=== PATIENT | male | born 1985 | race American Indian/Alaskan Native ===

== ENCOUNTER 2017-02-11 17:52 | Emergency (ER) | payer OTHER ==
[~2017-02-11] VITALS: Ht 152.4 cm; Wt 81.7 kg
[~2017-02-11 17:52] MED LIST: AMITRIPTYLINE H10 MG PO; ANAPROX DS550 MG PO; BACTRIM DS TAB1 EACH PO; CYCLOBENZAPRINE10 MG PO; GABAPENTIN100 MG PO; HYDROXYZINE HCL25 MG PO; IBUPROFEN600 MG PO; KEFLEX500 MG PO; LITHIUM CARBON300 M1 PO; NAPROSYN500 MG PO; NORCO 5-325 TA1 EACH PO; POTASSIUM CHLO10 MEQ PO; PRILOSEC OTC20 MG PO; XANAX0.5 MG PO
[2017-02-11] MEDS ORDERED: TYLENOL325 MG PO (18:10)
== END 2017-02-11 19:20 | disposition home or self-care (01) ==
LOC: ED 17:52
DX: S93.504A Unspecified sprain of right lesser toe(s), initial encounter (principal); L72.9 Follicular cyst of the skin and subcutaneous tissue, unspecified; F31.9 Bipolar disorder, unspecified; F17.200 Nicotine dependence, unspecified, uncomplicated; Z90.49 Acquired absence of other specified parts of digestive tract; Z91.040 Latex allergy status; X58.XXXA Exposure to other specified factors, initial encounter
CPT/HCPCS: 99282

== ENCOUNTER 2018-04-16 19:15 | Emergency (ER) | payer OTHER ==
[~2018-04-16] VITALS: Ht 152.4 cm; Wt 81.7 kg
[~2018-04-16 19:15] MED LIST changes: +TYLENOL325 MG PO
[2018-04-16] MEDS ORDERED: CLONIDINE HCL0.1 MG PO (20:25)
[2018-04-16] MEDS ORDERED: ZOFRAN4 MG PO (21:28)
== END 2018-04-16 21:37 | disposition home or self-care (01) ==
LOC: ED 19:15
DX: J06.9 Acute upper respiratory infection, unspecified (principal); F31.9 Bipolar disorder, unspecified; F17.200 Nicotine dependence, unspecified, uncomplicated; Z91.040 Latex allergy status; Z79.899 Other long term (current) drug therapy
CPT/HCPCS: 71046; 87502; 99283-25

== ENCOUNTER 2018-07-19 21:52 | Emergency (ER) | payer OTHER ==
--- OUTSIDE RECORDS SUMMARY | ~2018-07-19 | XMS | Clinical Summary ---
Demographics + + + | Address | [address] | | | [place] [address] | + + + | Home Phone | | + + + | Preferred Language | Unknown | + + + | Marital Status | Single | + + + | Yarsani Affiliation | Unknown | + + + | Race | or | + + + | Ethnic Group | Not or | + + + Author + + + | Author | [facility] | + + + | Organization | [facility] | + + + | Address | Unknown | + + + | Phone | Unavailable | + + + Support + + +---------+ + | Name | Relationship | Address | Phone | + + +---------+ + | NONE,NONE | ECON | Unknown | Unavailable | + + +---------+ + Care Team Providers + +------+ + | Care Promotional Marketing Analyst Name | Role | Phone | + +------+ + | Jaren Doll | PP | | + +------+ + Source Comments OSMANI is fully live on both [facility] Ambulatory and [facility] InPatient.[facility] Allergies + + + + + + | Active Allergy | Reactions | Severity | Noted | Comments | | | | | Date | | + + + + + + | Latex | Rash | | 06/28/19 | | | | | | 08 | | + + + + + + Current Medications + + +-------+---------+------+------+-------+ | Prescription | Sig. | Disp. | Refills | Star | End | Statu | | | | | | t | Date | s | | | | | | Date | | | + + +-------+---------+------+------+-------+ | omeprazole 20 mg | 1-2 cap po qday | | | | | Activ | | Oral Capsule, | | | | | | e | | Delayed | | | | | | | | Release(E.C.) | | | | | | | + + +-------+---------+------+------+-------+ | fluoxetine 10 mg | 1-2 tab po qday | | | | | Activ | | Oral Tablet | | | | | | e | + + +-------+---------+------+------+-------+ | ibuprofen 200 mg | Take 200 mg by mouth | | | | | Activ | | oral tablet | every six hours as | | | | | e | | | needed. | | | | | | + + +-------+---------+------+------+-------+ | acetaminophen 500 | Take 1,000 mg by | | | | | Activ | | mg oral tablet | mouth every six | | | | | e | | | hours as needed. 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 | + + + Family History + + +------+ + | Medical History | Relation | Name | Comments | + + +------+ + | Hypertension | Mother | | | + + +------+ + + +------+--------+ + | Relation | Name | Status | Comments | + +------+--------+ + | Mother | | | | + +------+--------+ + Social History + +-------+ +--------+------+ | Tobacco Use | Types | Packs/Day | Years | Date | | | | | Used | | + +-------+ +--------+------+ | Never Smoker | | | | | + +-------+ +--------+------+ + + | Comments: Smoke off and on | + + + + +---------+ + | Alcohol Use | Drinks/We | oz/Week | Comments | | | ek | | | + + +---------+ + | Yes | | | occasionally | + + +---------+ + + + + | Sex Assigned at | Date Recorded | | | | + + + | Not on file | | + + + Last Filed Vital Signs + + + + | Vital Sign | Reading | Time Taken | + + + + | Blood Pressure | 150/97 | 11/12/2015 11:55 AM PDT | + + + + | Pulse | 119 | 11/12/2015 11:55 AM PDT | + + + + | Temperature | - | - | + + + + | Respiratory Rate | 18 | 11/12/2015 11:55 AM PDT | + + + + | Oxygen Saturation | - | - | + + + + | Inhaled Oxygen | - | - | | Concentration | | | + + + + | Weight | 79.7 kg (175 lb 9.6 | 11/12/2015 11:55 AM PDT | | | oz) | | + + + + | Height | 152.4 cm (5') | 11/12/2015 11:55 AM PDT | + + + + | Body Mass Index | 34.29 | 11/12/2015 11:55 AM PDT | + + + + Plan of Treatment + + + + + | Health Maintenance | Due Date | Last Done | Comments | + + + + + | Influenza (Flu) | | | | | vaccination (#1) | 8 | | | + + + + + Results Not on filefrom Last 3 Months Insurance + +--------+ +--------+ + + | Payer | Benefi | Subscriber | Type | Phone | Address | | | t Plan | ID | | | | | | / | | | | | | | Group | | | | | + +--------+ +--------+ + + | [place] | OHP | [phone] | Medica | [phone] [address] [phone] | | | PLUS | | id | [phone] | [place] [id number] | | | OPEN | | | | | | | CARD | | | | | + +--------+ +--------+ + + | FOR[facility]LY [facility] | | [phone] | Agency | | | | SERVICE | | | | | | | | HEALTH | | | | | | | | | | | | | | SERVIC | | | | | | | E | | | | | + +--------+ +--------+ + + + +--------+ +--------+ + + | Guarantor Name | Accoun | Relation to | Date | Phone | Billing Address | | | t Type | Patient | of | | | | | | | | | | + +--------+ +--------+ + + | SWEROSENDOT,AUGUST | Person | Self [birth year] | Home: | [address] | | | al/Fam | | 1984 | +- | [place], [place] | | | [place] | | | [phone] | [phone] | + +--------+ +--------+ + + | AUGUST DONOVAN | Agency | Self | [birth year] | Home: | [address] | | | | | 1984 | +- | [place], [place] | | | | | | [phone] | [phone] | + +--------+ +--------+ + +"
--- OUTSIDE RECORDS SUMMARY | ~2018-07-19 | XMS | Clinical Summary ---
Demographics + + + | Address | [address] | | | [place] [address] | + + + | Home Phone | | + + + | Preferred Language | Unknown | + + + | Marital Status | Unknown | + + + | Taoism Affiliation | Unknown | + + + | Race | Unknown | + + + | Ethnic Group | Unknown | + + + Author + + + | Author | [facility] | | | and [place] | + + + | Organization | [facility] | | | and [place] | + + + | Address | Unknown | + + + | Phone | Unavailable | + + + Care Team Providers + +------+ + | Care Protection Manager Name | Role | Phone | + +------+ + PP | Unavailable | + +------+ + Allergies Not on File Medications Not on file Active Problems Not on file Social History + +-------+ +--------+------+ | Tobacco [...] on file | | + + + + + + + | Job Start Date | Occupation | Industry | + + + + | Not on file | Not on file | Not on file | + + + + + + + + | Travel History | Travel Start | Travel End | + + + + + + | No recent travel history available. | + + Plan of Treatment + + + + + | Health Maintenance | Due Date | Last Done | Comments | + + + + + | Vaccine: | | | | | Dtap/Tdap/Td (1 - | 3 | | | | Tdap) | | | | + + + + + | Vaccine: Influenza | | | | | (Season Ended) | 9 | | | + + + + + Results Not on filefrom Last 3 Months"
--- OUTSIDE RECORDS SUMMARY | ~2018-07-19 | XMS | Clinical Summary ---
Demographics + + + | Address | [address] | | | [place] [address] | + + + | Home Phone | | + + + | Preferred Language | Unknown | + + + | Marital Status | Unknown | + + + | Episcopal Affiliation | Unknown | + + + | Race | Unknown | + + + | Ethnic Group | Unknown | + + + Author + + + | Author | [facility] | | | and [place] | + + + | Organization | [facility] | | | and [place] | + + + | Address | Unknown | + + + | Phone | Unavailable | + + + Care Team Providers + +------+ + | Care Product Engineer Name | Role | Phone | + [...]
--- OUTSIDE RECORDS SUMMARY | ~2018-07-19 | XMS | Clinical Summary ---
Demographics + + + | Address | [address] | | | [place] [address] | + + + | Home Phone | | + + + | Preferred Language | Unknown | + + + | Marital Status | Single | + + + | Sikhism Affiliation | Unknown | + + + [...] Team Providers + +------+ + | Care Health And Wellness Instructor Name | Role | Phone | + +------+ + | Jaren Doll | PP | | + +------+ + Source Comments OSMANI is fully live on both [facility] Ambulatory and [facility] InPatient.[facility] Allergies + + + + + [...] | Medica | [phone] | [address] [phone] | | | PLUS | | id | [phone] | [place] [address] | | | OPEN | | | | | | | CARD | | | | | + +--------+ +--------+ + + | [facility] | | [phone] | Agency | [...] | [place] | | | [phone] | [phone] | + +--------+ +--------+ + + | AUGUST DONOVAN | Agency | Self | [birth year] | Home: | [address] | | | | | 1984 | +- | [place], [place] | | | | | | [phone] | [phone] | + +--------+ +--------+ + +"
[~2018-07-19 21:52] MED LIST changes: +CLONIDINE HCL0.1 MG PO; +ZOFRAN4 MG PO
== END 2018-07-19 22:02 | disposition left against medical advice (07) ==
LOC: ED 21:52
DX: Z53.21 Procedure and treatment not carried out due to patient leaving prior to being seen by health care provider (principal)

== ENCOUNTER 2019-12-06 17:24 | Emergency (ER) | payer OTHER ==
[~2019-12-06] VITALS: Ht 154.9 cm; Wt 86.2 kg
--- OUTSIDE RECORDS SUMMARY | ~2019-12-06 | XMS | Encounter Summary ---
Demographics + + + | Address | [address] | | | [place] [address] | + + + | Home Phone | | + + + | Preferred Language | Unknown | + + + | Marital Status | Single | + + + | Catholic Affiliation | Unknown | + + + | Race | or | + + + | Ethnic Group | Not or | + + + Author + + + | Author | [facility] | + + + | Organization | [facility] | + + + | Address | Unknown | + + + | Phone | Unavailable | + + + Support + + +---------+ + | Name | Relationship | Address | Phone | + + +---------+ + | None None | ECON | Unknown | Unavailable | + + +---------+ + Care Team Providers + +------+ + | Care Knit Goods Cutter Hand Name | Role | Phone | + +------+ + | Jaren Doll | PCP | | + +------+ + Encounter Details +--------+ + + + + | Date | Type | Department | Care Team | Description | +--------+ + + + + | 09/20/ | Document-Sc | UNKNOWN DEPARTMENT | Unknown . | | | 2015 | anned | [address] | | | | | | [address] | | | | | | [place] | | | | | | [address] | | | +--------+ + + + + Social History + +-------+ +--------+------+ | Tobacco Use | Types | Packs/Day | Years | Date | | | | | Used | | + +-------+ +--------+------+ | Never Smoker | | | | | + +-------+ +--------+------+ + + | Comments: Smoke off and on | + + + + +---------+ + | Alcohol Use | Drinks/Week | oz/Week | Comments | + + +---------+ + | Yes | | | occasionally | + + +---------+ + + + + | Sex Assigned at | Date Recorded | | | | + + + | Not on file | | + + + documented as of this encounter Plan of Treatment Not on filedocumented as of this encounter Visit Diagnoses Not on filedocumented in this encounter"
--- OUTSIDE RECORDS SUMMARY | ~2019-12-06 | XMS | Clinical Summary ---
Demographics + + + | Address | [address] | | | [place] [address] | + + + | Home Phone | | + + + | Preferred Language | Unknown | + + + | Marital Status | Single | + + + | Religion Affiliation | Unknown | + + + | Race | or | + + + | Ethnic Group | Not or | + + + Author + + + | Author | [facility] | | | and [place] | + + + | Organization | [facility] | | | and [place] | + + + | Address | Unknown | + + + | Phone | Unavailable | + + + Support + + +---------+ + | Name | Relationship | Address | Phone | + + +---------+ + | Tiffany Morales | ECON | Unknown | | + + +---------+ + Care Team Providers + +------+ + | Care Bioinformatics Team Member Name | Role | Phone | + +------+ + | Tiffany Zarco PA-C | PCP | | + +------+ + Allergies Not on File Medications Not on file Active Problems Not on file Encounters +--------+ + + + + | Date | Type | Specialty | Care Team | Description | +--------+ + + + + | 12/05/ | Telephone | Gastroenterology | SelenapualYenny celeste, | Other (proactive | | 2020 | | | MD | screening) | +--------+ + + + + | 11/15/ | Telephone | Gastroenterology | Saeed Addison | Referral | | 2019 | | | MD Jackeline | | +--------+ + + + + from Last 3 Months Social History + +-------+ +--------+------+ | Tobacco Use | Types | Packs/Day | Years | Date | | | | | Used | | + +-------+ +--------+------+ | Never Assessed | | | | | + +-------+ +--------+------+ + + + | Sex Assigned at | Date Recorded | | | | + + + | Not on file | | + + + Last Filed Vital Signs Not on file Plan of Treatment +--------+---------+ + + + | Date | Type | Specialty | Care Team | Description | +--------+---------+ + + + | 12/06/ | Office | Gastroenterology | Yenny Gu, | | | 2019 | Visit | | [address] | | | | | | [place] [address] | | | | | | [phone] | | | | | | | | +--------+---------+ + + + + + + + + | Health Maintenance | Due Date | Last | Comments | | | | Done | | + + + + + | Hepatitis C | | | | | Screening | 4 | | | + + + + + | Vaccine: Influenza | | 12/31/19 | | | (#1) | 0 | 19, | | | | | 01/20/20 | | | | | 18, | | | | | 01/24/20 | | | | | 17, | | | | | Addition | | | | | al | | | | | history | | | | | exists | | + + + + + | Vaccine: | | 04/30/19 | | | Dtap/Tdap/Td (4 - | 8 | 18, | | | Td) | | 03/22/20 | | | | | 07, | | | | | 03/19/19 | | | | | 99 | | + + + + + Results Not on filefrom Last 3 Months Insurance + +--------+ +--------+ +---------+--------+ | Payer | Benefi | Subscriber | Effect | Phone | Address | Type | | | t Plan | ID | janice | | | | | | / | | Dates | | | | | | Group | | | | | | + +--------+ +--------+ +---------+--------+ | [place]ID [place] | MEDICA | [id number] | | [phone] | | [place] | | | [place] | | 020-Pr | 2 | | id | | | PLUS | | esent | | | | + +--------+ +--------+ +---------+--------+ + +--------+ +--------+ + + | Guarantor Name | Accoun | Relation to | Date | Phone | Billing Address | | | t Type | Patient | of | | | | | | | | | | + +--------+ +--------+ + + | Nicole Mcnair | Person | Self [birth year] | [address] | | | al/Fam | | 1985 | [phone] | [place] | | | [place] | | | [address] (Home) | [phone] | + +--------+ +--------+ + + Advance Directives + + + + + | Type | Date Recorded | Patient | Explanation | | | | Commercial Finance Analyst | | + + + + + | Power of | | | | | Executive Administrative Asst | | | | + + + + + | Advance | | | | | Directive | | | | + + + + +"
--- OUTSIDE RECORDS SUMMARY | ~2019-12-06 | XMS | Encounter Summary ---
Demographics + + + | Address | [address] | | | [place] [address] | + + + | Home Phone | | + + + | Preferred Language | Unknown | + + + | Marital Status | Single | + + + | Confucianism Affiliation | Unknown | + + + | Race | or | + + + | Ethnic Group | Not or | + + + Author + + + | Author | [facility] | + + + | Organization | [facility] | + + + | Address | Unknown | + + + | Phone | Unavailable | + + + Support + + +---------+ + | Name | Relationship | Address | Phone | + + +---------+ + | None None | ECON | Unknown | Unavailable | + + +---------+ + Care Team Providers + +------+ + | Care Step Down Nurse Name | Role | Phone | + +------+ + | Daren Carter DO | PCP | | + +------+ + Reason for Visit + + + | Reason | Comments | + + + | Back pain | New patient consult, Spinal bifida | + + + Consultation (Routine) +--------+--------+ + + + + | Status | Reason | Specialty | Diagnoses / | Referred By | Referred To | | | | | Procedures | Contact | Contact | +--------+--------+ + + + + | Closed | | Orthopedics | Diagnoses | Walker, | Karen, | | | | | Congenital | Daren Taylor DO | Denis Alaniz, | | | | | absence of | [address] | [place] | | | | | vertebra | [address] | [facility] | | | | | Scoliosis | [place], | [address] | | | | | (and | [place] [address] | [address] | | | | | [address] | Phone: | [address] | | | | | is), | [phone] | [place], [place] | | | | | idiopathic | Fax: | [phone] Phone: | | | | | Procedures | [phone] | [phone] | | | | | CONSULT TO | | Fax: | | | | | SPINE ORTHO | | [phone] | +--------+--------+ + + + + Encounter Details +--------+---------+ + + + | Date | Type | Department | Care Team | Description | +--------+---------+ + + + | 06/27/ | Office | Orthopaedic Spine | Denis Jones | Sacral Agenesis | | 2007 | Visit | Center at [facility] [address] | MD [facility] [place] [facility] | (Primary Dx) | | | | [address] | Care | | | | | Mailcode: [facility] | [address] | | | | | [facility] | [place] [address] | | | | | and Healing, | [phone] | | | | | Building | | | | | | Floor [place], [place] | | | | | | [address] | | | | | | [phone] | | | +--------+---------+ + + + Social History + +-------+ [...] + + documented as of this encounter Last Filed Vital Signs + + + + + | Vital Sign | Reading | Time Taken | Comments | + + + + + | Blood Pressure | - | - | | + + + + + | Pulse | 54 | 06/28/2007 12:01 PM | | | | | PDT | | + + + + + | Temperature | - | - | | + + + + + | Respiratory Rate | - | - | | + + + + + | Oxygen Saturation | - | - | | + + + + + | Inhaled Oxygen | - | - | | | Concentration | | | | + + + + + | Weight | 63.5 kg (140 lb) | 06/28/2007 12:01 PM | | | | | PDT | | + + + + + | Height | 154.9 cm (5' 1") | 06/28/2007 12:01 PM | | | | | PDT | | + + + + + | Body Mass Index | 26.45 | 06/28/2007 12:01 PM | | | | | PDT | | + + + + + documented in this encounter Progress Notes Denis Jones - 06/28/2007 12:35 PM PDT cc: neck and upper back pain and LBP HPI: Nicole Mcnair is a 22 y.o. male who has a 4 year history of back pain. He describes t he symptoms as intermittent, daily, aching. These symptoms are located in the area of neck and upper back and low back, Right shoulder. They improve with inactivity. Lifting heavy o bjects, basketball makes them worse. There is occasional numbness/tingling in the right martinez d. Prior treatment has included PT many years ago. Prior spine surgery includes spina bifida surgery when he was a baby in [facility] . Nicole Sweowat is currently taking the following medications for his symptoms: hydrocodone not taking because fo nausea. He reports some fevers, chills. No loss of bowel or bladder control, but urgency. some balance problems (club foot), no new clumsiness or problems with manipulating fine objects. PMH: includes club foot, and spina bifida, some kind of GI problems of unclear etiology. P lease see the intake form which I have reviewed for full details. PSH: Please see the intake form which I have reviewed for full details. Medications: Current outpatient prescriptions : omeprazole 20 mg Oral Capsule, Delayed Rele ase(E.C.), 1-2 cap po qday, Disp: , Rfl: fluoxetine 10 mg Oral Tablet, 1-2 tab po qday, Disp: , Rfl: hydrocodone-acetaminophen 5-325 mg Oral Tablet, 1 tab po qday, Disp: , Rfl: Allergies: Allergies Allergen Reactions Latex Rash Social Hx: Works as a never. Currently disabled. Tobacco history is occasional, 1 gram marajuana per day. Alcohol history is occasional ( former alcoholic. ROS: Please see the intake form which I have reviewed for full details. Physical Exam: General: The patient is a well-formed, well nourished individual in no acute distress who appears of stated age. Affect and mood are normal. Patient is normocephalic. Peripheral p ulses are normal. Breathing is normal. Abdomen is soft, non-tender. Skin is normal color, temperature. No significant lymphedema. Station and gait are poor (see below) Vital Signs: As per intake form. Musculoskeletal: Examination of the cervical, thoracic and lumbar spine demonstrates no sk in changes or areas of induration. There is a hairy patch in the lumabr spine, as weel as a well healed midine scar. Flexibility is limited to flexion, extension, lateral bending, an d axial rotation of both the cervical and lumabr spines. 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 Spurlings and Lhermittes tests are negative. Crawford and Neer tests are ne gative for impingement. Hip and knee ROM are normal. HE has a stiff ankle on the right. Neurologic: Muscle strength is 5/5 in all motor groups of the upper extremities, the right ankle is nonmobile. The left foot has no dorsiflexion or EHL, but 4/5 gastroc. Deep tendon reflexes are 2 at the biceps, triceps and wrist extensors, as well as the knees, ankles are minimal. There is no Hoffmans sign. There is no clonus. Sensation is grossly intact to l ight touch throughout, except decreased over the feet (longstanding). Radiographs: X-Rays show defect about T11. 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 Impression: Nicole Mcnair is a 22 y.o. male with sacral agenesis, spina bifida, and neck an d back pain. Plan: I want to work up his neck. This would include x-rays and MRI of the cervical spine. I told him that I do not think I would be able to help with his low back, and I will defer further workup of this at this time. I will prescribe him with PT, but I don't know if his insurance will cover that. The other things is that based on his x-rays, I don't think he should be afraid to play noncontact sports (like shooting basketball) in terms of his back. Therefore I would recommend he get back into physical activity, like walking or shooting ba sketball. Sit-ups don't make sense for him given his sacral defects. I will see him back a fter the studies are done. documented in this enc ounter Plan of Treatment + +---------+--------+ + + | Name | Type | Priori | Associated Diagnoses | Order Schedule | | | | ty | | | + +---------+--------+ + + | MRI SPINE CERVICAL | Imaging | Routin | Sacral Agenesis | Ordered: 06/28/2007 | | WO CONTRAST | | e | | | + +---------+--------+ + + documented as of this encounter Procedures + +--------+ + + + | Procedure Name | Priori | Date/Time | Associated Diagnosis | Comments | | | ty | | | | + +--------+ + + + | X-RAY SPINE CERVICAL | Routin | 06/28/2007 | Sacral Agenesis | Results for this | | 3 VIEWS | e | 12:46 PM | | procedure are in the | | | | PDT | | results section. | + +--------+ + + + documented in this encounter Results X-RAY SPINE CERVICAL 3 VIEWS (06/28/2007 12:46 PM PDT) + + + + + + | Component | Value | Ref Range | Performed | Pathologist | | | | | At | Signature | + + + + + + | SPINE, | STUDY: SPINE CERVICAL 3 | | | | | CERVICAL, 3 | VIEWS 06/28/07 | | | | | VIEWS | 13:19:00COMPARISON: | | | | | | NONEDISCUSSION:There is | | | | | | relative flattening and | | | | | | widening of the C5 and | | | | | | C6 vertebralbodies, | | | | | | without evidence for | | | | | | compression fracture. | | | | | | Disc spaces | | | | | | aremaintained. | | | | | | Alignment is anatomic. | | | | | | The atlanto-odontoid | | | | | | intervaland | | | | | | craniocervical junction | | | | | | are normal. No | | | | | | pre-vertebral soft | | | | | | tissueswelling is | | | | | | present.There is no | | | | | | dynamic instability | | | | | | between flexion and | | | | | | extension.IMPRESSION:1. | | | | | | Relative flattening | | | | | | and widening of the C5 | | | | | | and C6 vertebralbodies | | | | | | appears chronic and | | | | | | unrelated to trauma. | | | | | | This is most | | | | | | likelydevelopmental.2. | | | | | | No malalignment or | | | | | | dynamic instability.I | | | | | | have personally viewed | | | | | | this procedure/exam and | | | | | | reviewed this | | | | | | report.STATUS FINAL / | | | | | | Dr. 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
--- OUTSIDE RECORDS SUMMARY | ~2019-12-06 | XMS | Encounter Summary ---
Demographics + + + | Address | [address] | | | [place] [address] | + + + | Home Phone | | + + + | Preferred Language | Unknown | + + + | Marital Status | Single | + + + | Sikh Affiliation | Unknown | + + + | Race | or | + + + | Ethnic Group | Not or | + + + Author + + + | Author | [facility] | | | and [place] | + + + | Organization | [facility] | | | and [place] | + + + | Address | Unknown | + + + | Phone | Unavailable | + + + Support + + +---------+ + | Name | Relationship | Address | Phone | + + +---------+ + Fito Morales | ECON | Unknown | | + + +---------+ + Care Team Providers + +------+ + | Care Concrete Gun Operator Name | Role | Phone | + +------+ + | Tiffany Zarco PA-C | PCP | | + +------+ + Reason for Visit + +--------+ + | Reason | Onset | Comments | | | Date | | + +--------+ + | Referral | 11/15/ | | | | 2020 | | + +--------+ + Encounter Details +--------+ + + + + | Date | Type | Department | Care Team | Description | +--------+ + + + + | 11/15/ | Telephone | [facility] | Saeed Addison | Referral | | 2020 | | GASTROENTEROLOGY | MD Jackeline [address] | | | | | [address] | [place] [address] | | | | | [place], [place] | [phone] | | | | | [address] | | | | | | [phone] | | | +--------+ + + + [...] + + documented as of this encounter Miscellaneous Notes Telephone Encounter - Cari Day - 11/24/2019 5:08 PM PDTReturned call, appt schedu led. elephone Encounter - Bethany Bennett - 11/22/2019 3:28 PM PDTLoren, is returning call for Referral and would like a call back. Additional Call Details: Returning call to schedule from new referral. Please call back at the home number. elephone Encounter - Sun Beard - 11/22/2019 11:32 AM PDTSee referral notes/communications 11/22/2019 Sun figueroa Antique Collector elephone Encounter - Alyson Miranda - 11/18/2019 1:57 PM PDTLoren, is returning call for Referral and would like a call back. Additional Call Details: Returning call, please call the home number listed elephone Encounte r Bethany Coker - 11/16/2019 4:31 PM PDTShdeborah[facility] and would like a call back. Additional Call Details: Caller states she will contact patient to schedule from referral, as he has not returned the referral coordinators call. If this is a symptom based call, was patient offered triage? Not Applicable If this is a symptom based call and you were unable to immediately transfer the call to a vandana garcia senior buyer planner was caller made aware that if at any time he feels it is an emergency they jass uld call 911 or go to the nearest emergency room? not applicable documented in this encounter Plan of Treatment +--------+---------+ + + + | Date | Type | Specialty | Care Team | Description | +--------+---------+ + + + | 12/06/ | Office | Gastroenterology | Yenny Gu, | | 2019 | Visit | | MD [address] | | | | | | [place] [address] | | | | | | [phone] | | | | | | | | +--------+---------+ + + + documented as of this encounter Visit Diagnoses Not on filedocumented in this encounter"
--- OUTSIDE RECORDS SUMMARY | ~2019-12-06 | XMS | Clinical Summary ---
Demographics + + + | Address | [address] | | | [place] [address] | + + + | Home Phone | | + + + | Preferred Language | Unknown | + + + | Marital Status | Single | + + + | Rastafarian Affiliation | Unknown | + + + [...] Team Providers + +------+ + | Care Hand Etcher Name | Role | Phone | + +------+ + | Jaren Doll | PCP | | + +------+ + Source Comments [facility] is fully live on both [facility] and [facility].Replaced By [facility] Allergies + + + + + + | Active Allergy | Reactions | Severity | Noted | Comments | | | | | Date | | + + + + + + | Latex | Rash | | 06/28/19 | | | | | | 08 | | + + + + + + Medications + + + +---------+------+------+-------+ | Medication | Sig | Dispensed | Refills | Star | End | Statu | | | | | | t | Date | s | | | | | | Date | | | + + + +---------+------+------+-------+ | omeprazole 20 mg | 1-2 cap po qday | | 0 | | | Activ | | Oral Capsule, | | | | | | e | | Delayed | | | | | | | | Release(E.C.) | | | | | | | + + + +---------+------+------+-------+ | fluoxetine 10 mg | 1-2 tab po qday | | 0 | | | Activ | | Oral Tablet | | | | | | e | + + + +---------+------+------+-------+ | ibuprofen 200 mg | Take 200 mg by mouth | | 0 | | | Activ | | oral tablet | every six hours as | | | | | e | | | needed. | | | | | | + + + +---------+------+------+-------+ | acetaminophen 500 | Take 1,000 mg by | | 0 | | | Activ | | mg oral tablet | mouth every six | | | | | e | | | hours as needed. | | | | | | + + + +---------+------+------+-------+ Active Problems + + + | Problem [...] Pressure | 150/97 | 11/12/2015 11:55 AM | | | | | PDT | | + + + + + | Pulse | 119 | 11/12/2015 11:55 AM | | | | | PDT | | + + + + + | Temperature | - | - | | + + + + + | Respiratory Rate | 18 | 11/12/2015 11:55 AM | | | | | PDT | | + + + + + | Oxygen Saturation | - | - | | + + + + + | Inhaled Oxygen | - | - | | | Concentration | | | | + + + + + | Weight | 79.7 kg (175 lb 9.6 | 11/12/2015 11:55 AM | | | | oz) | PDT | | + + + + + | Height | 152.4 cm (5') | 11/12/2015 11:55 AM | | | | | PDT | | + + + + + | Body Mass Index | 34.29 | 11/12/2015 11:55 AM | | | | | PDT | | + + + + + Plan of Treatment + + +-------+ + | Health Maintenance | Due Date | Last | Comments | | | | Done | | + + +-------+ + | Influenza (Flu) | | | | | vaccination (#1) | 9 | | | + + +-------+ + | Pneumococcal | Aged Out | | No longer eligible based on patient's age | | vaccination | | | to complete this topic | + + +-------+ + Results Not on filefrom Last 3 Months Insurance + +--------+ +--------+ + +--------+ | Payer | Benefi | Subscriber | Effect | Phone | Address | Type | | | t Plan | ID | janice | | | | | | / | | Dates | | | | | | Group | | | | | | + +--------+ +--------+ + +--------+ | [place] | OHP | [id number] | | [phone] | [address] | [address] | | | PLUS | | [phone] | id | | | OPEN | | esent | | [place], [place] | | | | CARD | | | | [id number] | | + +--------+ +--------+ + +--------+ | [facility] | | [id number] | Effect | | | Agency | | SERVICE | | | janice | | | | | | HEALTH | | for | | | | | | | | all | | | | | | SERVIC | | dates | | | | | | E | | | | | | + +--------+ +--------+ + +--------+ + +--------+ +--------+ + + | Guarantor Name | Accoun | Relation to | Date | Phone | Billing Address | | | t Type | Patient | of | | | | | | | | | | + +--------+ +--------+ + + | Nicole Mcnair | Person | Self [birth year] | [address] | | | al/Fam [birth year] | 1985 | [phone] | [place] | | | anthoyn | | | [address] (Home) | [id number] | + +--------+ +--------+ + + | Nicole Mcnair | Agency | Self | [birth year] | [address] | | | | | 1985 | [phone] | [place] | | | | | | [address] ([place]) | [id number] | + +--------+ +--------+ + +"
--- OUTSIDE RECORDS SUMMARY | ~2019-12-06 | XMS | Encounter Summary ---
Demographics + + + | Address | [address] | | | [place] [address] | + + + | Home Phone | | + + + | Preferred Language | Unknown | + + + | Marital Status | Single | + + + | Hinduism Affiliation | Unknown | + + + | Race | or | + + + | Ethnic Group | Not or | + + + Author + + + | Author | [facility] | + + + | Organization | [facility] | + + + | Address | Unknown | + + + | Phone | Unavailable | + + + Support + + +---------+ + | Name | Relationship | Address | Phone | + + +---------+ + | None None | ECON | Unknown | Unavailable | + + +---------+ + Care Team Providers + +------+ + | Care Manager Strategy Name | Role | Phone | + +------+ + | Gamaliel Dollaresourav MERIDA | PCP | | + +------+ + Reason for Visit +--------+--------+ + | Reason | Onset | Comments | | | Date | | +--------+--------+ + | Other | 12/26/ | | | | 2015 | | +--------+--------+ + Encounter Details +--------+ + + + + | Date | Type | Department | Care Team | Description | +--------+ + + + + | 12/26/ | Telephone | Orthopaedic Spine | Frank Jean | Other | | 2015 | | Center at [facility] [address] | Vinay Taylor MD [address] | | | | | [address] | [address] | | | | | Mailcode: CH8N | [place], [place] | | | | | [facility] | [address] | | | | | and Healing, | [phone] | | | | | [facility] | | | | | | Floor [place], [place] | | | | | | [address] | | | | | | [phone] | | | +--------+ + + + [...] this encounter Miscellaneous Notes Telephone Encounter - Arleth Bolden MA - 12/27/2015 10:21 AM PDTCalled and let Gabriela know t hat I faxed out ppw work to [facility] today to them. She stated understanding. E lectronically signed by Arleth Bolden MA at 12/27/2015 10:22 AM PDTTelephone Encounter - Muna Beatty - 12/27/2015 10:13 AM PDTGabriela from [facility] calling regards to the plan of care she faxed over to have Dr. Jean sign and faxed back. Gabriela was hoping t his could be completed by today and is requesting a phone call in return. The plan of care c an be faxed to [phone]. documented in this encounter Plan of Treatment Not on filedocumented as of this encounter Visit Diagnoses Not on filedocumented in this encounter"
--- OUTSIDE RECORDS SUMMARY | ~2019-12-06 | XMS | Encounter Summary ---
Demographics + + + | Address | [address] | | | [place] [address] | + + + | Home Phone | | + + + | Preferred Language | Unknown | + + + | Marital Status | Single | + + + | Taoist Affiliation | Unknown | + + + | Race | or | + + + | Ethnic Group | Not or | + + + Author + + + | Author | [email or web address] | + + + | Organization | [facility] | + + + | Address | Unknown | + + + | Phone | Unavailable | + + + Support + + +---------+ + | Name | Relationship | Address | Phone | + + +---------+ + | None None | ECON | Unknown | Unavailable | + + +---------+ + Care Team Providers + +------+ + | Care Retail Greeter Name | Role | Phone | + +------+ + | Jaren Doll | PCP | | + +------+ + Reason for Referral Physical Therapy (Routine) +--------+--------+ + + + + | Status | Reason | Specialty | Diagnoses / | Referred By | Referred To | | | | | Procedures | Contact | Contact | +--------+--------+ + + + + | Closed | | | Diagnoses | Punkarlaan, | | | | | | Chronic | Frank | | | | | | neck and | Vinay Taylor, | | | | | | back pain | MD [address] | | | | | | Chronic low | [address] | | | | | | back pain | [place], [place] | | | | | | [place] | [address] | | | | | | is Sacral | Phone: | | | | | | agenesis | [phone] | | | | | | Procedures | Fax: | | | | | | PHYSICAL | [phone] | | | | | | THERAPY | | | | | | | REFERRAL | | | +--------+--------+ + + + + Reason for Visit + + + | Reason | Comments | + + + | Return Patient | F/U T-spine | + + + Intake Referral (Routine) +--------+--------+ + + + + | Status | Reason | Specialty | Diagnoses / | Referred By | Referred To | | | | | Procedures | Contact | Contact | +--------+--------+ + + + + | Closed | | Orthopedics | | Stuart, | Miranda, | | | | | | Sanjay Sims | Frank Mclean | | | | | | GABRIELLA Taylor MD [address] | | | | | | [address] | [address] | | | | | | HEALTH | [place], [place] | | | | | | CENTER | [address] | | | | | | [address] | Phone: | | | | | | [address] | [phone] | | | | | | [address] | Fax: | | | | | | [address] | [phone] | | | | | | [place], | | | | | | | [place] [address] | | | | | | | Phone: | | | | | | | [phone] | | | | | | | Fax: | | | | | | | [phone] | | +--------+--------+ + + + + Encounter Details +--------+---------+ + + + | Date | Type | Department | Care Team | Description | +--------+---------+ + + + | 11/11/ | Office | Orthopaedic Spine | Frank Jean | Chronic neck and | | 2015 | Visit | Center at [facility] [address] | Vinay Taylor MD [address] | back pain (Primary | | | | [address] | [address] | Dx); Chronic low | | | | Mailcode: CH8N | [place], [place] | back pain; | | | | [facility] | [address] | Kyphoscoliosis; | | | | and Healing, | [phone] | Sacral agenesis | | | | Building | | | | | | Floor [place], [place] | | | | | | [address] | | | | | | [phone] | | | +--------+---------+ + + + [...] + documented in this encounter Progress Notes Frank Jean MD - 11/12/2015 12:02 PM Harjit Mcnair returns for follow-up of upper to mid back pain, 16 months from last visit. His complaints are primarily unchange d. Has done 8 weeks of PT last year which helped some while he was doing it. Taking Tylenol and ibuprofen and cyclobenzaprine. Pain is rated 3 up to 10/10 2-3 times a week in intensity . Also got a new gel orthopedic bed which also has helped some. ROS: no new bowel and bladder symptoms, no new numbness and tingling in the extremities. 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 Nicole would like to exhaust non-invasive treatment options before consideri ng more invasive treatment modalities. I believe this is reasonable, given the non-urgent na ture of his problem, elective nature of further invasive interventions, and large magnitude of possible surgical intervention. Consult to external PT. RTC in 3 months. Pain management and long-term follow-up c/o PCP. Patient questions answered and concerns addressed. Patient advised. Please feel free to call for any further questions or concerns. documented in this encounter Plan of Treatment Not on filedocumented as of this encounter Visit Diagnoses + + | Diagnosis | + + | Chronic neck and back pain - Primary | + + | Chronic low back pain Lumbago | + + | Kyphoscoliosis Scoliosis (and kyphoscoliosis), idiopathic | + + | Sacral agenesis Congenital absence of vertebra | + + documented in this encounter"
--- OUTSIDE RECORDS SUMMARY | ~2019-12-06 | XMS | Encounter Summary ---
Demographics + + + | Address | [address] | | | [place] [address] | + + + | Home Phone | | + + + | Preferred Language | Unknown | + + + | Marital Status | Single | + + + | Yarsanism Affiliation | Unknown | + + + | Race | or | + + + | Ethnic Group | Not or | + + + Author + + + | Author | [facility] | | | and [place] | + + + | Organization | [facility] | | | [...] Team Providers + +------+ + | Care Knitting Teacher Name | Role | Phone | + +------+ + | Tiffany Zarco PA-C | PCP | | + +------+ + Reason for Visit +--------+--------+ + | Reason | Onset | Comments | | | Date | | +--------+--------+ + | Other | 12/05/ | proactive screening | | | 2020 | | +--------+--------+ + Encounter Details +--------+ + + + + | Date | Type | Department | Care Team | Description | +--------+ + + + + | 12/05/ | Telephone | [facility] | Yenny Gu, | Other (proactive | | 2020 | | GASTROENTEROLOGY | [address] | screening) | | | | [address] | [place] [address] | | | | | [place], [place] | [phone] | | | | | [address] | | | | | | [phone] | | | +--------+ + + + [...] this encounter Miscellaneous Notes Telephone Encounter - Dotty Yeboah CNA - 12/06/2019 4:27 PM PDTProactive screenin g for upcoming office visit to help ensure the clinic environment remains a safe place to re ceive care. 1. Patient (or visitor as allowed per policy) reports the following symptoms and/or exposur e on the epidemic risk screen: ? Fever greater than 100 F in the last 24 hours?: no ? New onset (within the last 10 days) cough?: no ? New onset (within the last 10 days) shortness of breath?: no ? New onset (within the last 10 days) loss of taste or smell?: no ? New onset (within the last 10 days) sore throat?: no ? New onset (within the last 10 days) chills?: no ? New onset (within the last 10 days) muscle aches or general malaise?: no ? New onset (within the last 10 days) nausea, vomiting, or diarrhea?: no ? New onset (within the last 10 days) congestion or runny nose?: no ? Close contact with someone who has been diagnosed with COVID-19 in the last 14 days?: no The patient reported no symptoms or exposure and proceeded with proactive screening process . 2. Have you tested positive for COVID-19 in the last 10 days without ever having symptoms ?: No. Okay to see patient in clinic per scheduling guidelines, proceeded to question #3 3. Does the patient have MyChart Access?: No. Patient refused. Please be aware that you will be asked these same questions when you arrive at the clinic. If you have any changes in your symptoms between now and your visit, please call us so we c an get you scheduled for an alternative visit before you arrive at the clinic. Following [facility] guidelines, masking is required when you receive care at a [facility] site. If you are unable to wear a mask for medical reasons, alternative visit opti ons are available. Hand washing is marte to keeping our clinic a safe place to receive care. While you are in r clinics you will be asked to perform hand washing at different intervals throughout your v isit. While you are in the clinic 6ft distancing is required, please ensure you look for the 6ft floor markers and adhere to distancing. Visitor restrictions remain in place following CDC guidance. Only minimal exceptions will be allowed. If you arrive with a visitor they may be asked to wait in the car during your v isit. We reserve the right to deny entrance to patients or visitors who refuse to comply with the above safety precautions. documented in t his encounter Plan of Treatment +--------+---------+ + + + | Date | Type | Specialty | Care Team | Description | +--------+---------+ + + + | 12/06/ | Office | Gastroenterology | Yenny Gu, | | 2019 | Visit | | MD [address] | | | | | | [place] [address] | | | | | | [phone] | | | | | | | | +--------+---------+ + + + documented as of this encounter Visit Diagnoses Not on filedocumented in this encounter"
--- OUTSIDE RECORDS SUMMARY | ~2019-12-06 | XMS | Encounter Summary ---
Demographics + + + | Address | [address] | | | [place] [address] | + + + | Home Phone | | + + + | Preferred Language | Unknown | + + + | Marital Status | Single | + + + | Moravian Affiliation | Unknown | + + + | Race | or | + + + | Ethnic Group | Not or | + + + Author + + + | Author | [facility] | | | and [place] | + + + | Organization | [facility] | | | and [...] Providers + +------+ + | Care Manager Drive Name | Role | Phone | + +------+ + PCP | Unavailable | + +------+ + Encounter Details +--------+ + + + + | Date | Type | Department | Care Team | Description | +--------+ + + + + | 03/05/ | Hospital | [facility] | | | | 2007 | Encounter | [facility] | | | | | | CENTER [address] | | | | | | [place] | | | | | | [address] | | | | | | [phone] | | | +--------+ + + + [...] as of this encounter Plan of Treatment +--------+---------+ + + + | Date | Type | Specialty | Care Team | Description | +--------+---------+ + + + | 12/06/ | Office | Gastroenterology | Yenny Gu, | | | 2019 | Visit | | MD [address] | | | | | | [place] [address] | | | | | | [phone] | | | | | | | | +--------+---------+ + + + documented as of this encounter Visit Diagnoses Not on filedocumented in this encounter"
--- OUTSIDE RECORDS SUMMARY | ~2019-12-06 | XMS | Encounter Summary ---
Demographics + + + | Address | [address] | | | [place] [address] | + + + | Home Phone | | + + + | Preferred Language | Unknown | + + + | Marital Status | Single | + + + | Gnosticism Affiliation | Unknown | + + + | Race | or | + + + | Ethnic Group | Not or | + + + Author + + + | Author | [facility] | | | and [place] | + + + | Organization | [facility] | | | and [...] Team Providers + +------+ + | Care Crime Specialist Name | Role | Phone | + +------+ + PCP | Unavailable | + +------+ + Encounter Details +--------+ + + + + | Date | Type | Department | Care Team | Description | +--------+ + + + + | 07/24/ | Imaging | [facility] | Provider, | | | 2020 | Exam | MED CTR EXTERNAL | MD [address] | | | | | IMAGING [address] | | | | | [address] | [place] [address] | | | | | [place] [address] | | | | | | [phone] | | | +--------+ + + + [...] [address] | | | | | | [place] [address] | | | | | | [phone] | | | | | | | | +--------+---------+ + + + documented as of this encounter Procedures + +--------+ + + + | Procedure Name | Priori | Date/Time | Associated Diagnosis | Comments | | | ty | | | | + +--------+ + + + | CT CERVICAL SPINE WO | Routin | 08/14/2007 | | Results for this | | CONTRAST | e | 12:05 AM | | procedure are in the | | | | PDT | | results section. | + +--------+ + + + documented in this encounter Results CT Cervical Spine wo Contrast (08/14/2007 12:05 AM PDT) + + | Specimen | + + | | + + + + + | Narrative | Performed At | + + + | External films for comparison only | [facility] | | | | | No results will be in the chart. | | + + + + +---------+ + + | Performing | Address | City/State/Zipcode | Phone Number | | Organization | | | | + +---------+ + + | [facility] | | | | + +---------+ + + documented in this encounter Visit Diagnoses Not on filedocumented in this encounter"
--- OUTSIDE RECORDS SUMMARY | ~2019-12-06 | XMS | Encounter Summary ---
Demographics + + + | Address | [address] | | | [place] [address] | + + + | Home Phone | | + + + | Preferred Language | Unknown | + + + | Marital Status | Single | + + + | Restorationist Affiliation | Unknown | + + + | Race | or | + + + | Ethnic Group | Not or | + + + Author + + + | Author | [facility] | + + + | Organization | [facility] [employer] [facility] | + + + | Address | Unknown | + + + | Phone | Unavailable | + + + Support + + +---------+ + | Name | Relationship | Address | Phone | + + +---------+ + | None None | ECON | Unknown | Unavailable | + + +---------+ + Care Team Providers + +------+ + | Care Financial Analyst Accountant Name | Role | Phone | + +------+ + | Daren Carter DO | PCP | | + +------+ + Reason for Visit + +--------+ + | Reason | Onset | Comments | | | Date | | + +--------+ + | Erroneous Encounter | 10/18/ | | | - Disregard | 2008 | | + +--------+ + Consultation (Routine) +--------+--------+ + + + + | Status | Reason | Specialty | Diagnoses / | Referred By | Referred To | | | | | Procedures | Contact | Contact | +--------+--------+ + + + + | Closed | | Orthopedics | Diagnoses | Walker, | Karen, | | | | | Congenital | Daren Taylor DO | Denis Corbin, | | | | | absence of | [address] | [place] | | | | | vertebra | [address] | Spine Care | | | | | Scoliosis | [place], | [address] [address] | | | | | (and | [place] [address] | [address] | | | | | [place] | Phone: | [address] | | | | | is), | [phone] | [place], [place] | | | | | idiopathic | Fax: | [address] Phone: | | | | | Procedures | [phone] | [phone] | | | | | CONSULT TO | | Fax: | | | | | SPINE ORTHO | | [phone] | +--------+--------+ + + + + Encounter Details +--------+---------+ + + + | Date | Type | Department | Care Team | Description | +--------+---------+ + + + | 09/18/ | Office | Orthopaedic Spine | eDnis Jones | Sacral Agenesis | | 2008 | Visit | Center at [facility] [address] | MD Hilaria Alaniz Spine | (Primary Dx); NO | | | | [address] | Care | DIAGNOSIS RECEIVED | | | | Mailcode: [facility] | [address] | | | | | [facility] | [place] [address] | | | | | and Healing, | [phone] | | | | | Building | | | | | | Floor [place], [place] | | | | | | [address] | | | | | | [phone] | | | +--------+---------+ + + + [...] + + documented as of this encounter Progress Geovani Donald - 10/18/2008 2:57 PM PDTThis encounter was opened in error. Please disrega rd this note. documented i n this encounter Plan of Treatment Not on filedocumented as of this encounter Visit Diagnoses + + | Diagnosis | + + | Sacral agenesis - Primary Congenital absence of vertebra | + + | NO DIAGNOSIS RECEIVED | + + documented in this encounter"
--- OUTSIDE RECORDS SUMMARY | ~2019-12-06 | XMS | Encounter Summary ---
Demographics + + + | Address | [address] | | | [place] [address] | + + + | Home Phone | | + + + | Preferred Language | Unknown | + + + | Marital Status | Single | + + + | Nondenominational Affiliation | Unknown | + + + | Race | or | + + + | Ethnic Group | Not or | + + + Author + + + | Author | [facility] | + + + | Organization | [facility] [facility] | + + + | Address | Unknown | + + + | Phone | Unavailable | + + + Support + + +---------+ + | Name | Relationship | Address | Phone | + + +---------+ + | None None | ECON | Unknown | Unavailable | + + +---------+ + Care Team Providers + +------+ + | Care Physical Design Engineer Name | Role | Phone | [...] + + + | Closed | | Non [facility] | Diagnoses | P[place], | Non-[facility] | | | | Department | Chronic | Frank | Epic Dept | | | | | upper back | Vinay Taylor | | | | | | pain | MD [address] | | | | | | Chronic mid | [address] | | | | | | back pain | [place], [place] | | | | | | [place] | [address] | | | | | | is Sacral | Phone: | | | | | | agenesis | [phone] | | | | | | Procedures | Fax: | | | | | | PHYSICAL | [phone] | | | | | | THERAPY | | | | | | | REFERRAL | | | +--------+--------+ + + + + Reason for Visit + + + | Reason | Comments | + + + | New patient | | | consultation | | + + + Consultation (Routine) +--------+--------+ + + + + | Status | Reason | Specialty | Diagnoses / | Referred By | Referred To | | | | | Procedures | Contact | Contact | +--------+--------+ + + + + | Closed | | Orthopedics | Diagnoses | Lucina, | Miranda, | | | | | Lumbar | MD Trinh | Frank Mclean | | | | | congenital | [address] | R[address] | | | | | spina bifida | [address] | [address] | | | | | | [place], [place] | [place], [place] | | | | | | [address] | [address] | | | | | | Phone: | Phone: | | | | | | [phone] | [phone] | | | | | | Fax: | Fax: | | | | | | [phone] | [phone] | +--------+--------+ + + + + Encounter Details +--------+---------+ + + + | Date | Type | Department | Care Team | Description | +--------+---------+ + + + | 08/08/ | Office | Orthopaedics at | Frank Jean | Chronic upper back | | 2015 | Visit | [facility] [address] | Vinay Taylor MD [address] | pain (Primary Dx); | | | | [address] | [address] | Chronic mid back | | | | Mailcode: PV430 | [place], [place] | pain; | | | | [facility] | [address] | [place]os[place]iosis; | | | | [place], [place] | [phone] | Sacral agenesis | | | | [address] | | | | | | [phone] | | | +--------+---------+ + + + [...] + + + | Blood Pressure | 143/93 | 08/08/2014 1:21 PM | | | | | PDT | | + + + + + | Pulse | 129 | 08/08/2014 1:21 PM | | | | | PDT [...] + + + + | Weight | 68 kg (150 lb) | 08/08/2014 1:21 PM | | | | | PDT | | + + + + + | Height | 152.4 cm (5') | 08/08/2014 1:21 PM | | | | | PDT | | + + + + + | Body Mass Index | 29.29 | 08/08/2014 1:21 PM | | | | | PDT | | + + + + + documented in this encounter Progress Notes Frank Jean MD - 08/08/2014 2:03 PM PDTFormatting of this note might be dif ferent from the original. Referral Source: Trinh Verdugo MD CC: Mid to upper back pain HPI: Nicole Mcnair is a 29 y.o. male. He presents with a long ("all my life") history of remittent mid to upper back pain, descri bed as aching to sharp in character and moderate to sometimes severe in intensity. The sympt oms are not worse on either side and radiates up into the neck and bilateral parietal head a reas. The pain is worse with standing more than 20-30 minutes, walking more than hour and b anastasiya with rest, stretching, sitting, lying down on his right side position. He has no difficulty with gait. There is associated numbness, weakness and clumsiness over both feet since childhood. No loss of bowel or bladder control but has had some leakage issues since childhood. Past treatment includes PT last in 2007 with temporary result. Current pain medi cations include tylenol and ibuprofen. There is history of depression, anxiety, controlled w ith medications, c/p PCP; no other psychiatric diagnosis. Prior surgery to the spine include s spinal and clubfoot surgery as . There is no night pain, fever, chills nor recent u nexplained weight loss. 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 Denies diabetes, hypertension, c hronic heart or lung disease, history of cancer. Please see the intake form which I have rev iewed for full details. PSH: Please see the intake form which I have reviewed for full details. Medications: Current outpatient prescriptions:acetaminophen 500 mg oral tablet, Take 1,000 mg by mouth every six hours as needed., Disp: , Rfl: fluoxetine 10 mg Oral Tablet, 1-2 tab po qday, Disp: , Rfl: ibuprofen 200 mg oral tablet, Take 200 mg by mouth every six hours as needed., Disp: , Rfl: omeprazole 20 mg Oral Capsule, Delayed Release(E.C.), 1-2 cap po qday, Disp: , Rfl: Allergies: Allergies Allergen Reactions Latex Rash Social Hx: Currently SSI. Weekly physical activity regimen: plays basketball, few hours Tobacco history is none. Alcohol history is 1-2 40 oz beers a day. History of alcohol and meth abuse. Family Hx: noncontributory. ROS: Please see the intake form which I have reviewed for full details. Physical Exam: General: The patient is a well-formed, well nourished, short stature individual in no acut e distress who appears of stated age. Affect and mood are normal. Patient is normocephalic . Peripheral pulses are normal. Breathing is normal. Abdomen is soft, non-tender. Skin i s normal color, temperature. No significant lymphedema. Station and gait are short legged on the right. Unable to walk on heels and toes and tandem walk without difficulty due to stephan g-standing foot and ankle weakness. Vital Signs: BP 143/93 | Pulse 129 | Ht 1.524 m (5') | Wt 68.04 kg (150 lb) | BMI 29.3 kg/ (m^2) Musculoskeletal: The spine is not balanced in both sagittal and coronal planes: slightly f orward leaning and to the right. Examination of the lumbar spine demonstrates no skin change s or areas of induration. Flattened thoracic kyphosis. Flattened lumbar lordosis. There are no masses. Healed posterior midline lumbosacral surgical incision. Direct tenderness to para spinal areas at panthroacic to thoracolumbar junctional levels. Flexibility is not teste to day. Hip and knee ROM are reasonably pain-free. Neurologic: Muscle strength is 5/5 in all motor groups of the lower extremities except 4/5 right tibialis anterior, 0/5 right gastrocsoleus, 0/5 left tibialis anterior, 4/5 left gastr ocsoleus. Deep tendon reflexes are 2/4 at the biceps, triceps and wrist extensors, as well as the knees and 0/4 both ankles. There is no Hoffmans sign. There is no difficulty with ra pid alternating movements in upper extremities. Toes are downgoing. There is no ankle clonus . Sensation is grossly intact to light touch throughout except decreased sensation below th e knees, more profoundly over right > left leg and foot. Straight leg raising is negative. Radiographs independently reviewed: Xrays: scoliosis survey spine AP and lateral from [facility] today show pelvic obliquity (left> right hemipelvis ~ 39mm) with oblique takeoff of lumbar spine from pelvis; sacral agenesis; truncated flattened lumbar spine foreshortened into pelvis; thoracic hypokyphosis; 42 degree compensatory dextroscoliosis T5-12; C7 rich shfited 75mm to the right of CSVL; neutral sag ittal balance but with no sacral promontory reference landmark. Assessment/Plan: 29 year old male with chronic upper to mid back pain, myofascial decondi tioning vs spondylotic etiologies; leg length discrepancy with pelvic obliquity; sacral agen esis with flattened lumbar lordosis, compensatory thoracic scoliosis and hypokyphosis; spina bifida with myelomeningocoele s/p repair; no evidence of significant cord or other nerve ro ot compression at the current time I went over my history, exam and imaging findings with Nicole today and discussed the phyllis shipman history and approach to management of chronic upper to mid back pain, myofascial deconditi oning vs spondylotic etiologies; leg length discrepancy with pelvic obliquity; sacral agenes is with flattened lumbar lordosis, compensatory thoracic scoliosis and hypokyphosis; spina b ifida with myelomeningocoele s/p repair. We discussed the role of activity and lifestyle mod ification, pain relief modalities, proper back mechanics, PT and regular conditioning exerci ses, judicious short-term use of pain-relievers and anti-inflammatories in relation to upper and mid back pain. Nicole's condition is complex given his congenital abnormalities and resu lting surgeries. Overall, he has managed to stay active in spite of his increasing back pain , but now begins to struggle with it. Consult to external PT. RTC in 2-3 months. Consider shoe lift if unimproved. Pain managemen t and long-term follow-up c/o PCP. Please feel free to contact us should you or Nicole have any further spine questions or conc erns. I spent 60 minutes with the patient. Greater than 50% of the time was spent counseling the patient regarding chronic upper to mid back pain, myofascial deconditioning vs spondylotic etiologies; leg length discrepancy with pelvic obliquity; sacral agenesis with flattened lum bar lordosis, compensatory thoracic scoliosis and hypokyphosis; spina bifida with myelomenin gocoele s/p repair. irgie Abdalla MA - 08/08/2014 1:27 PM PDTBP 143/93, pt asymptomatic documented in this encounter Plan of Treatment Not on filedocumented as of this encounter Results X-RAY SCOLI SPINE ENTR SRVY AP &LAT (08/08/2014 3:15 PM PDT) + + + + + + | Component | Value | Ref Range | Performed | Pathologist | | | | | At | Signature | + + + + + + | SPINE ENTR | STUDY: SPINE ENTR SRVY | | | | | SRVY STDY | STDY AP & LAT 08/08/14 | | | | | AP & LAT | 15:15:00 HISTORY: Pain. | | | | | | Scoliosis. COMPARISON: | | | | | | None. FINDINGS:There is | | | | | | a 38 degree rightward | | | | | | thoracolumbar spinal | | | | | | list, with 7.5 cm | | | | | | positivecoronal balance. | | | | | | There is | | | | | | approximately 2 cm | | | | | | positive sagittal | | | | | | balance. Lowerlumbar | | | | | | spinal dysraphism is | | | | | | evident. No other | | | | | | segmentation anomaly is | | | | | | seen.No fracture or | | | | | | focal osseous | | | | | | destruction is observed. | | | | | | IMPRESSION: | | | | | | Thoracolumbar rightward | | | | | | spinal list. Lower | | | | | | lumbar dysraphism. | | | | | | Attending Radiologists: | | | | | | BABAK HOYOS MDAuthor: | | | | | | BABAK HOYOS MD I have | | | | | | personally viewed this | | | | | | procedure/exam, reviewed | | | | | | this report, and | | | | | | madechanges to it where | | | | | | appropriate. | | | | | | Final/Electronically | | | | | | signed / BABAK HOYOS | | | | | | 08/08/2014 15:25 PM | | | | + + + + + + + + | Specimen | + + | | + + + +---------+ + + | Performing | Address | City/State/Zipcode | Phone Number | | Organization | | | | + +---------+ + + | [facility] | | | | | RADIOLOGY | | | | + +---------+ + + documented in this encounter Visit Diagnoses + + | Diagnosis | + + | Chronic upper back pain - Primary Backache, unspecified | + + | Chronic mid back pain Backache, unspecified | + + | Kyphoscoliosis Scoliosis (and kyphoscoliosis), idiopathic | + + | Sacral agenesis Congenital absence of vertebra | + + documented in this encounter
--- OUTSIDE RECORDS SUMMARY | ~2019-12-06 | XMS | Encounter Summary ---
Demographics + + + | Address | [address] | | | [place] [address] | + + + | Home Phone | | + + + | Preferred Language | Unknown | + + + | Marital Status | Single | + + + | Scientologist Affiliation | Unknown | + + + | Race | or | + + + | Ethnic Group | Not or | + + + Author + + + | Author | [facility] | | | and [place] | + + + | Organization | [facility] | | | [...] Team Providers + +------+ + | Care Licensing And Registration Director Name | Role | Phone | + [...] | | | | THEA [place]JA | [place] [address] | | | | | [place] [address] | | | | | | [phone] | | | +--------+ + + + [...] SMITH | | | | | | [place] [address] | | | | | | [phone] | | | | | | | | +--------+---------+ + + + documented as of this encounter Procedures + +--------+ + + + | Procedure Name | Priori | Date/Time | Associated Diagnosis | Comments | | | ty | | | | + +--------+ + + + | CT MAXILLOFACIAL WO | Routin | 08/14/2007 | | Results for this | | CONTRAST | e | 12:00 AM | | procedure are in the | | | | PDT | | results section. | + +--------+ + + + documented in this encounter Results CT Maxillofacial wo Contrast (08/14/2007 12:00 AM PDT) + + | Specimen | [...]
--- OUTSIDE RECORDS SUMMARY | ~2019-12-06 | XMS | Encounter Summary ---
Demographics + + + | Address | [address] | | | [place] [address] | + + + | Home Phone | | + + + | Preferred Language | Unknown | + + + | Marital Status | Single | + + + | Oriental Orthodox Affiliation | Unknown | + + + | Race | or | + + + | Ethnic Group | Not or | + + + Author + + + | Author | [facility] | + + + | Organization | [facility] [employer] [facility] | + + + | Address | Unknown | + + + | Phone | Unavailable | + + + Support + + +---------+ + | Name | Relationship | Address | Phone | + + +---------+ + | None None | ECON | Unknown | Unavailable | + + +---------+ + Care Team Providers + +------+ + | Care Industrial Nurse Name | Role | Phone | + +------+ + | Daren Caretr DO | PCP | | + +------+ + Reason for Visit Consultation (Routine) +--------+--------+ + + + + | Status | Reason | Specialty | Diagnoses / | Referred By | Referred To | | | | | Procedures | Contact | Contact | +--------+--------+ + + + + | Closed | | Orthopedics | Diagnoses | Raul, | Karen, | | | | | Congenital | Daren Taylor DO | Denis Alaniz, | | | | | absence of | [address] | MD [place] | | | | | vertebra | [address] | Spine Care | | | | | Scoliosis | [place], | [address] | | | | | (and | [place] [address] | Ave [address] | | | | | [place] | Phone: | [address] | | | | | is), | [phone] | [place], [place] | | | | | idiopathic | Fax: | [phone] Phone: | | | | | Procedures | [phone] | [phone] | | | | | CONSULT TO | | Fax: | | | | | SPINE ORTHO | | [phone] | +--------+--------+ + + + + Encounter Details +--------+---------+ + + + | Date | Type | Department | Care Team | Description | +--------+---------+ + + + | 07/17/ | Office | Orthopaedic Spine | Denis Jones | Sacral Agenesis | | 2008 | Visit | Center at [facility] [address] | MD [place] [place] [facility] | (Primary Dx) | | | | [address] | Care | | | | | Mailcode: [address] | [address] | | | | | [facility] | [place] [address] | | | | | and Healing, | [phone] | | | | | Building | | | | | | Floor [place], [place] | | | | | | [address] | | | | | | [phone] | | | +--------+---------+ + + + [...] + documented as of this encounter Progress Arik Montenegro - 08/27/2008 6:48 PM PDTErroneous encounter. documented in this encounter Miscellaneous Lorie Linton - 08/27/2008 10:17 PM PDT documented in this encounter Plan of Treatment Not on filedocumented as of this encounter Visit Diagnoses + + | Diagnosis | + + | Sacral agenesis - Primary Congenital absence of vertebra | + + documented in this encounter"
--- OUTSIDE RECORDS SUMMARY | ~2019-12-06 | XMS | Encounter Summary ---
Demographics + + + | Address | [address] | | | [place] [address] | + + + | Home Phone | | + + + | Preferred Language | Unknown | + + + | Marital Status | Single | + + + | Christianity Affiliation | Unknown | + + + | Race | or | + + + | Ethnic Group | Not or | + + + Author + + + | Author | [facility] | + + + | Organization | [facility] | + + + | Address | Unknown | + + + | Phone | Unavailable | + + + Support + + +---------+ + | Name | Relationship | Address | Phone | + + +---------+ + | None None | ECON | Unknown | Unavailable | + + +---------+ + Care Team Providers + +------+ + | Care Spray Machine Tender Name | Role | Phone | + +------+ + | Daren Carter DO | PCP | | + +------+ + Reason for Visit + + + | Reason | Comments | + + + | Neck pain | follow up to X-rays | + + + Consultation (Routine) +--------+--------+ [...] | Congenital | Daren Taylor DO | eDnis Alaniz, | | | | | absence of | [address] | [place] | | | | | vertebra | [address] | Spine Care | | | | | Scoliosis | [place], | [address] | | | | | (and | [place] [address] | [address] | | | | | [place] | Phone: | [address] | | | | | is), | [phone] | [place], [place] | | | | | idiopathic | Fax: | [phone] Phone: | | | | | Procedures | [phone] | [phone] | | | | | CONSULT TO | | Fax: | | | | | SPINE ORTHO | | [phone] | +--------+--------+ + + + + Encounter Details +--------+---------+ + + + | Date | Type | Department | Care Team | Description | +--------+---------+ + + + | 07/18/ | Office | Orthopaedic Spine | Denis Jones | Sacral Agenesis | | 2007 | Visit | Center at [facility] [address] | MD [place] [place] [facility] | (Primary Dx) | | | | [address] | Care | | | | | Mailcode: [address] | [address] | | | | | [facility] | [place] [address] | | | | | and Healing, | [phone] | | | | | Building | | | | | | Floor [place], [place] | | | | | | [address] | | | | | | [phone] | | | +--------+---------+ + + + [...] + documented as of this encounter Progress Notes Denis Jones - 07/19/2007 12:15 PM PDT Addended by: KAREN MELARA, HAROLDO Fisher on: 07/19/2007 12 :15:41 PM Modules accepted: Orders enis Jones - 07/19/2007 12:11 PM Harijt Mcnair returns. His complaints are essentially unchanged. T hese are primarily low back pain and bilateral numbness and tingling. Domi edid not get an MRI . Exam is unchanged from his last visit. Radiographic Evaluation shows no motion at C1-2 that is abnormal. His canal diameter is 14 mm. Plan: We talked about his symptoms. I do not think that surgery in his lumbar spine is ind icated at this point. If he was really having trouble with his arms, we could get an MRI of the neck, but based on his x-rays, I do not see anything dangerous. He is not symptomatic enough to think about surgery at this point, so we will hold off. I will see him back in on e year for repeat Scoli filsm and AP and lateral lumbar films. documented in this enc ounter Plan of Treatment Not on filedocumented as of this encounter Visit Diagnoses + + | Diagnosis | + + | Sacral agenesis - Primary Congenital absence of vertebra | + + documented in this encounter"
--- OUTSIDE RECORDS SUMMARY | ~2019-12-06 | XMS | Encounter Summary ---
Demographics + + + | Address | [address] | | | [place] [address] | + + + | Home Phone | | + + + | Preferred Language | Unknown | + + + | Marital Status | Single | + + + | Restoration Affiliation | Unknown | + + + | Race | or | + + + | Ethnic Group | Not or | + + + Author + + + | Author | [facility] | + + + | Organization | [facility] | + + + | Address | Unknown | + + + | Phone | Unavailable | + + + Support + + +---------+ + | Name | Relationship | Address | Phone | + + +---------+ + | None None | ECON | Unknown | Unavailable | + + +---------+ + Care Team Providers + +------+ + | Care Kennel Aide Name | Role | Phone | + [...] | Closed | | | Diagnoses | [place], | [facility] | | | | | Chronic | Frank | [place] | | | | | neck and | Vinay Taylor, | OTPTRehab | | | | | back pain | MD [address] | | | | [address] | [address] | [place] | | | | | is Sacral | [place], [place] | [place], [place] | | | | | agenesis | [address] | [address] | | | | | Procedures | Phone: | Phone: | | | | | PHYSICAL | [phone] | [phone] | | | | | THERAPY | Fax: | Fax: | | | | | REFERRAL | [phone] | [phone] | +--------+--------+ + + + + Reason for Visit + +--------+ + | Reason | Onset | Comments | | | Date | | + +--------+ + | Physical Therapy | 02/17/ | | | Guidance | 2015 | | + +--------+ + Encounter Details +--------+ + + + + | Date | Type | Department | Care Team | Description | +--------+ + + + + | 02/17/ | Telephone | Orthopaedic Spine | Frank Waddell | Physical Therapy | | 2016 | | Center at [facility] [address] | Vinay Taylor MD [address] | Guidance | | | | [address] | [address] | | | | | Mailcode: CH8N | [place], [place] | | | | | [facility] | [address] | | | | | and Healing, | [phone] | | | | | [facility] | | | | | | Floor [place], [place] | | | | | | [address] | | | | | | [phone] | | | +--------+ + + + [...] Telephone Encounter - Arleth Bolden MA - 02/22/2016 12:50 PM PSTFaxed sent and verified to preferred physical therapy location. ddendum Note - Frank Waddell MD - 02/18/2016 11:19 AM PST Addended by: FRANK WADDELL MD on: 02/18/2016 11:19 AM Modules accepted: Orders elephone Encounter - Frank Waddell MD - 02/18/2016 11:15 AM PSTOrder placed for externa l PT. Kindly send to patient's preferred PT provider and inform patient once done. elephone Roopa paulina - Starr Galindo - 02/18/2016 10:23 AM PSTPatient: Nicole Mcnair Reason for call: patient says PT is working, canceled his appointment and hoping for extend ed PT orders Recent Surgery: No Procedure: N/A Provider: Miranda Does patient have confidential voicemail?: Yes documented in this encou nter Plan of Treatment Not on filedocumented as of this encounter Visit Diagnoses + + | Diagnosis | + + | Chronic neck and back pain - Primary | + + | Kyphoscoliosis Scoliosis (and kyphoscoliosis), idiopathic | + + | Sacral agenesis Congenital absence of vertebra | + + documented in this encounter"
--- OUTSIDE RECORDS SUMMARY | ~2019-12-06 | XMS | Encounter Summary ---
Demographics + + + | Address | [address] | | | [place] [address] | + + + | Home Phone | | + + + | Preferred Language | Unknown | + + + | Marital Status | Single | + + + | Jehovah'S Witness Affiliation | Unknown | + + + | Race | or | + + + | Ethnic Group | Not or | + + + Author + + + | Author | [facility] | + + + | Organization | [facility] [employer] [facility] | + + + | Address | Unknown | + + + | Phone | Unavailable | + + + Support + + +---------+ + | Name | Relationship | Address | Phone | + + +---------+ + | None None | ECON | Unknown | Unavailable | + + +---------+ + Care Team Providers + +------+ + | Care Warp Changer Name | Role | Phone | + +------+ + | Gamaliel Dollaresourav MERIDA | PCP | | + +------+ + Reason for Visit +--------+--------+ + | Reason | Onset | Comments | | | Date | | +--------+--------+ + | Other | 02/21/ | | | | 2015 | | +--------+--------+ + Encounter Details +--------+ + + + + | Date | Type | Department | Care Team | Description | +--------+ + + + + | 02/21/ | Telephone | Orthopaedic Spine | Frank Jean | Other | | 2015 | | Center at [facility] [address] | Vinay Taylor MD [address] | | | | | [address] | [address] | | | | | Mailcode: CH8N | [place], [place] | | | | | [facility] | [address] | | | | | and Healing, | [phone] | | | | | [facility] | | | | | | Floor [place], [place] | | | | | | [address] | | | | | | [phone] | | | +--------+ + + + [...] Encounter - Arleth Bolden MA - 02/22/2016 11:33 AM PSTCalled and spoke with lul awan and asked him where he wanted to go to get his physical therapy done at. Pt stated he wan samina it done at [facility]. 8: 15 AM PSTdocumented in this encounter Plan of Treatment Not on filedocumented as of this encounter Visit Diagnoses Not on filedocumented in this encounter"
--- OUTSIDE RECORDS SUMMARY | ~2019-12-06 | XMS | Encounter Summary ---
Demographics + + + | Address | [address] | | | [place] [address] | + + + | Home Phone | | + + + | Preferred Language | Unknown | + + + | Marital Status | Single | + + + | Congregation Affiliation | Unknown | + + + | Race | or | + + + | Ethnic Group | Not or | + + + Author + + + | Author | [facility] [employer] [facility] | + + + | Organization | [facility] [employer] [facility] | + + + | Address | Unknown | + + + | Phone | Unavailable | + + + Support + + +---------+ + | Name | Relationship | Address | Phone | + + +---------+ + | None None | ECON | Unknown | Unavailable | + + +---------+ + Care Team Providers + +------+ + | Care Help Desk Rep Name | Role | Phone | + +------+ + | Jaren Doll | PCP | | + +------+ + Encounter Details +--------+ + + + + | Date | Type | Department | Care Team | Description | +--------+ + + + + | 08/08/ | Hospital | Diagnostic | | | | 2014 | Encounter | Radiology at [facility] | | | | | | [address] | | | | | | Loop Physician's | | | | | | [place], [address] [place] [address] | | | | | | [place], [place] | | | | | | [address] | | | | | | [phone] | | | +--------+ + + + [...] + + documented as of this encounter Medications at Time of Discharge + + + +---------+--------+ + | Medication | Sig | Dispensed | Refills | Start | End Date | | | | | | Date | | + + + +---------+--------+ + | acetaminophen 500 | Take 1,000 mg by | | 0 | | | | mg oral tablet | mouth every six | | | | | | | hours as needed. | | | | | + + + +---------+--------+ + | fluoxetine 10 mg | 1-2 tab po qday | | 0 | | | | Oral Tablet | | | | | | + + + +---------+--------+ + | ibuprofen 200 mg | Take 200 mg by mouth | | 0 | | | | oral tablet | every six hours as | | | | | | | needed. | | | | | + + + +---------+--------+ + | omeprazole 20 mg | 1-2 cap po qday | | 0 | | | | Oral Capsule, | | | | | | | Delayed | | | | | | | Release(E.C.) | | | | | | + + + +---------+--------+ + documented as of this encounter Plan of Treatment Not on filedocumented as of this encounter Procedures + +--------+ + + + | Procedure Name | Priori | Date/Time | Associated Diagnosis | Comments | | | ty | | | | + +--------+ + + + | X-RAY SCOLI SPINE | Routin | 08/08/2014 | Chronic upper back | Results for this | | ENTR SRVY AP &LAT | e | 3:15 PM | pain Chronic mid | procedure are in the | | | | PDT | back pain | results section. | | | | | Kyphoscoliosis | | | | | | Sacral agenesis | | + +--------+ + + + documented in this encounter Results X-RAY SCOLI SPINE ENTR [...] | | + +---------+ + + | [facility] DEPARTMENT | | | | | RADIOLOGY | | | | + +---------+ + + documented in this encounter Visit Diagnoses + + | Diagnosis | + + | Chronic upper back pain Backache, unspecified | + + | Chronic mid back pain Backache, unspecified | + + | Kyphoscoliosis Scoliosis (and kyphoscoliosis), idiopathic | + + | Sacral agenesis Congenital absence of vertebra | + + documented in this encounter"
--- OUTSIDE RECORDS SUMMARY | 2019-12-06 17:26 | XMS ---
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 CRITERIA MET - PDMP CARE PROVIDERS There are no care providers on record at this time. Yasir has no Care Guidelines for this patient. E.Magnus VISIT COUNT (12 MO.) 1 [facility] TOTAL 1 NOTE: Visits indicate total known visits. ED/UCC VISIT TRACKING (12 MO.) 12/06/2019 17:25 [facility] [place] TYPE: Emergency COMPLAINT: - R LEG PAIN INPATIENT VISIT TRACKING (12 MO.) No inpatient visits to display in this time frame [id number]
== END 2019-12-06 19:52 | disposition home or self-care (01) ==
LOC: ED 17:24
DX: S76.311A Strain of muscle, fascia and tendon of the posterior muscle group at thigh level, right thigh, initial encounter (principal); F31.9 Bipolar disorder, unspecified; Z91.040 Latex allergy status; Z79.899 Other long term (current) drug therapy; X58.XXXA Exposure to other specified factors, initial encounter
CPT/HCPCS: 93971; 99283-25; A9270

== ENCOUNTER 2021-03-03 13:32 | Emergency (ER) | payer OTHER ==
[~2021-03-03] VITALS: Ht 154.9 cm; Wt 81.7 kg
== END 2021-03-03 14:51 | disposition home or self-care (01) ==
LOC: ED 13:32
DX: S43.401A Unspecified sprain of right shoulder joint, initial encounter (principal); S39.012A Strain of muscle, fascia and tendon of lower back, initial encounter; W18.2XXA Fall in (into) shower or empty bathtub, initial encounter; Z91.040 Latex allergy status; Z79.899 Other long term (current) drug therapy
CPT/HCPCS: 72100; 73030; 99283-25

== ENCOUNTER 2021-03-08 12:59 | Emergency (ER) | payer OTHER ==
[~2021-03-08] VITALS: Ht 154.9 cm; Wt 81.7 kg
--- OUTSIDE RECORDS SUMMARY | 2021-03-08 13:08 | XMS ---
PreManage Notification: AUGUST DONOVAN Security Bottle Gauger Events No recent Security Events currently on file CRITERIA MET - [facility] - 2 Visits in 30 Days CARE PROVIDERS [facility] Case Management 12/07/2019-[facility] PHONE: [phone] Yasir has no Care Guidelines for this patient. Care History Medical/Surgical 12/07/2019 [facility] - PATIENT IS [facility] ELIGIBLE, \T\middot;\T\nbsp; PLEASE REFER PATIENT TO [facility] FOR NON EMERGENT MEDICAL NEEDS. \T\middot;\T\nbsp; [facility] CAN SEE PATIENTS SAME DAY FOR APTS IF PATIENT CALLS FIRST THING IN THE MORNING. E.D. VISIT COUNT (12 MO.) [address] [place] [address] TOTAL 2 NOTE: Visits indicate total known visits. ED/UCC VISIT TRACKING (12 MO.) 03/08/2021 13:00 [facility] [place] TYPE: Emergency COMPLAINT: - R SIDE RASH 03/03/2021 13:32 [facility] [place] TYPE: Emergency COMPLAINT: - INJURED SHOULDER DIAGNOSES: - Other skilled nursing (current) drug therapy - Strain of muscle, fascia and tendon of lower back, initial encounter - Fall in (into) shower or empty bathtub, initial encounter - Pain in right upper arm - Unspecified sprain of right shoulder joint, initial encounter - Latex allergy status INPATIENT VISIT TRACKING (12 MO.) No inpatient visits to display in this time frame [email or web address]
[2021-03-08] MEDS ORDERED: HYDROCODON-ACE1 EA11 PO (13:47)
[2021-03-08] MEDS ORDERED: FAMCICLOVIR500 MG PO (13:47)
== END 2021-03-08 14:48 | disposition home or self-care (01) ==
LOC: ED 12:59
DX: B02.9 Zoster without complications (principal); Z91.040 Latex allergy status; Z79.899 Other long term (current) drug therapy
CPT/HCPCS: 99282; A9270

== ENCOUNTER 2021-05-23 15:28 | Emergency (ER) | payer OTHER ==
[~2021-05-23] VITALS: Ht 152.4 cm; Wt 81.7 kg
[~2021-05-23 15:28] MED LIST changes: +FAMCICLOVIR500 MG PO; +HYDROCODON-ACE1 EA11 PO
--- OUTSIDE RECORDS SUMMARY | 2021-05-23 15:32 | XMS ---
PreManage Notification: AUGUST DONOVAN Security Fiscal Accounting Clerk Events No recent Security Events currently on file CRITERIA MET - ED - Positive COVID-19 Lab Result - [facility] - [facility] CARE PROVIDERS [facility] Case Management 12/07/2019-[facility] PHONE: [phone] Yasir has no Care Guidelines for this patient. Care History Medical/Surgical 12/07/2019 [facility] - PATIENT IS [facility] ELIGIBLE, \T\middot;\T\nbsp; PLEASE REFER PATIENT TO [facility] FOR NON EMERGENT MEDICAL NEEDS. \T\middot;\T\nbsp; [facility] CAN SEE PATIENTS SAME DAY FOR APTS IF PATIENT CALLS FIRST THING IN THE MORNING. E.D. VISIT COUNT (12 MO.) 3 [facility] TOTAL 3 NOTE: Visits indicate total known visits. 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
[2021-05-23] MEDS ORDERED: CARAFATE1 GM PO (18:08)
--- NOTE | 2021-05-23 18:58 | EKG ---
[facility] [address] [facility] [place], [place] [address] Signed Normal sinus rhythm Normal ECG No previous ECGs available Confirmed by CLEMENCIA MENDOZA DO ([id number]) on 05/23/2021 6:57:49 PM Electronically Signed By: CLEMENCIA MENDOZA DO 05/23/21 1858 PATIENT NAME: AUGUST DONOVAN Electrocardiogram DATE OF : 83 PHYSICIAN: CLEMENCIA MENDOZA DO REPORT #: [id number] REPORT IS CONFIDENTIAL AND NOT TO BE RELEASED WITHOUT AUTHORIZATION
== END 2021-05-23 18:27 | disposition home or self-care (01) ==
LOC: ED 15:28
DX: K21.9 Gastro-esophageal reflux disease without esophagitis (principal); Z20.822 Contact with and (suspected) exposure to COVID-19; Z91.040 Latex allergy status; Z79.899 Other long term (current) drug therapy
CPT/HCPCS: 36415; 71045; 80053; 83690; 84484; 85025; 85379; 93005; 93010; 96374; 99285-25; C9803; J2270; U0003

== ENCOUNTER 2021-11-01 05:18 | Emergency (ER) | payer OTHER ==
[~2021-11-01] VITALS: Ht 152.4 cm; Wt 81.7 kg
[~2021-11-01 05:18] MED LIST changes: +CARAFATE1 GM PO
--- OUTSIDE RECORDS SUMMARY | 2021-11-01 05:21 | XMS ---
PreManage Notification: AUGUST DONOVAN Security Quality Assurance Group Leader Events No recent Security Events currently on file CRITERIA MET - [facility] Case Management 12/07/2019-[facility] PHONE: [phone] Yasir has no Care Guidelines for this patient. Care History Medical/Surgical 12/07/2019 [facility] - PATIENT IS [facility] ELIGIBLE, \T\middot;\T\nbsp; PLEASE REFER PATIENT TO [facility] FOR NON EMERGENT MEDICAL NEEDS. \T\middot;\T\nbsp; [facility] CAN SEE PATIENTS SAME DAY FOR APTS IF PATIENT CALLS FIRST THING IN THE MORNING. E.D. VISIT COUNT (12 MO.) [address] [place] [address] TOTAL 4 NOTE: Visits indicate total known visits. ED/UCC VISIT TRACKING (12 MO.) 11/01/2021 05:18 [facility] [place] TYPE: Emergency COMPLAINT: - SOB 05/23/2021 15:30 [facility] [place] TYPE: Emergency COMPLAINT: - DIFFICULTY BREATHING, HEAVY CHEST, R SIDE ABD PAIN DIAGNOSES: - Gastro-esophageal reflux disease without esophagitis - Other chest pain - Contact with and (suspected) exposure to COVID-19 - Other supervisor intermediates (current) drug therapy - Latex allergy status 03/08/2021 13:00 [facility] [place] TYPE: Emergency COMPLAINT: - R SIDE RASH DIAGNOSES: - Zoster without complications - Rash and other nonspecific skin eruption - Other supervisor intermediates (current) drug therapy - Latex allergy status 03/03/2021 13:[address] [facility] [place] TYPE: Emergency COMPLAINT: - INJURED SHOULDER DIAGNOSES: - Other penitentiary (current) drug therapy - Strain of muscle, fascia and tendon of lower back, initial encounter - Fall in (into) shower or empty bathtub, initial encounter - Pain in right upper arm - Unspecified sprain of right shoulder joint, initial encounter - Latex allergy status INPATIENT VISIT TRACKING (12 MO.) No inpatient visits to display in this time frame [id number]
[2021-11-01] MEDS ORDERED: ATIVAN0.5 MG PO (05:33)
[2021-11-01] MEDS ORDERED: HYDROCODON-ACE1 EA10 PO (05:33)
[2021-11-01] MEDS ORDERED: WAL-PROFEN200 M1 PO (05:34)
--- NOTE | 2021-11-02 07:02 | EKG ---
[facility] [address] [facility] [place], [place] [address] Signed Normal sinus rhythm Normal ECG When compared with ECG of 23-MAY-2021 15:38, No significant change was found Confirmed by TEO MCCLURE MD ([id number]) on 11/02/2021 7:02:14 AM Electronically Signed By: TEO MCCLURE MD 11/02/21701 PATIENT NAME: AUGUST DONOVAN Electrocardiogram DATE OF : 83 PHYSICIAN: TEO MCCLURE MD REPORT #: [id number] REPORT IS CONFIDENTIAL AND NOT TO BE RELEASED WITHOUT AUTHORIZATION
== END 2021-11-01 08:35 | disposition home or self-care (01) ==
LOC: ED 05:18
DX: R07.89 Other chest pain (principal); K64.4 Residual hemorrhoidal skin tags; Z79.899 Other long term (current) drug therapy; Z91.040 Latex allergy status
CPT/HCPCS: 36415; 71045; 80053; 84484; 85025; 85379; 93005; 93010; 99285-25

== ENCOUNTER 2021-12-02 05:14 | Emergency (ER) | payer OTHER ==
[~2021-12-02] VITALS: Ht 152.4 cm; Wt 81.7 kg
--- NOTE | ~2021-12-02 | EKG ---
[facility] [address] [facility] [place], [place] [address] Draft EKG completed, results pending confirmation PATIENT NAME: AUGUST DONOVAN WIN Electrocardiogram DATE OF : 83 PHYSICIAN: PRELIMINARY REPORT #: [id number] REPORT IS CONFIDENTIAL AND NOT TO BE RELEASED WITHOUT AUTHORIZATION
[~2021-12-02 05:14] MED LIST changes: +ATIVAN0.5 MG PO; +HYDROCODON-ACE1 EA10 PO; +WAL-PROFEN200 M1 PO
--- OUTSIDE RECORDS SUMMARY | 2021-12-02 05:16 | XMS ---
PreManage Notification: AUGUST DONOVAN Security Kennel Aide Events No recent Security Events currently on file CRITERIA MET - [facility] CARE PROVIDERS [facility] Case Management 12/07/2019-[facility] PHONE: [phone] Yasir has no Care Guidelines for this patient. Care History Medical/Surgical 12/07/2019 [facility] - PATIENT IS [facility] ELIGIBLE, \T\middot;\T\nbsp; PLEASE REFER PATIENT TO [facility] FOR NON EMERGENT MEDICAL NEEDS. \T\middot;\T\nbsp; [facility] CAN SEE PATIENTS SAME DAY FOR APTS IF PATIENT CALLS FIRST THING IN THE MORNING. E.D. VISIT COUNT (12 MO.) [address] [place] [address] TOTAL 5 NOTE: Visits indicate total known visits. ED/UCC VISIT TRACKING (12 MO.) 12/02/2021 05:14 [facility] [place] TYPE: Emergency COMPLAINT: - CHEST PAIN 11/01/2021 05:18 [facility] [place] TYPE: Emergency COMPLAINT: - SOB DIAGNOSES: - Other long term care pharmacist (current) drug therapy - Shortness of breath - Chest pain, unspecified - Other chest pain - Residual hemorrhoidal skin tags - Latex allergy status 05/23/2021 15:30 [facility] [place] TYPE: Emergency COMPLAINT: - DIFFICULTY BREATHING, HEAVY CHEST, R SIDE ABD PAIN DIAGNOSES: - Other correction (current) drug therapy - Other chest pain - Latex allergy status - Contact with and (suspected) exposure to COVID-19 - Gastro-esophageal reflux disease without esophagitis 03/08/2021 13:00 [facility] [place] TYPE: Emergency COMPLAINT: - R SIDE RASH DIAGNOSES: - Latex allergy status - Rash and other nonspecific skin eruption - Other long term care pharmacist (current) drug therapy - Zoster without complications 03/03/2021 13:32 [facility] [place] TYPE: Emergency COMPLAINT: - INJURED SHOULDER DIAGNOSES: - Latex allergy status - Pain in right upper arm - Strain of muscle, fascia and tendon of lower back, initial encounter - Unspecified sprain of right shoulder joint, initial encounter - Fall in (into) shower or empty bathtub, initial encounter - Other correction (current) drug therapy INPATIENT VISIT TRACKING (12 MO.) No inpatient visits to display in this time frame [id number]
== END 2021-12-02 07:13 | disposition home or self-care (01) ==
LOC: ED 05:14
DX: R07.9 Chest pain, unspecified (principal); R20.2 Paresthesia of skin; R42 Dizziness and giddiness; I10 Essential (primary) hypertension; Z91.040 Latex allergy status; Z79.899 Other long term (current) drug therapy
CPT/HCPCS: 36415; 71045; 80053; 84484; 85025; 85610; 93005; 93010; A9270; J1885

== ENCOUNTER 2022-07-14 13:43 | Emergency (ER) | payer OTHER ==
[~2022-07-14] VITALS: Ht 152.4 cm; Wt 81.6 kg
--- OUTSIDE RECORDS SUMMARY | 2022-07-14 13:46 | XMS ---
PreManage Notification: AUGUST DONOVAN Security Critical Care Rn Events No recent Security Events currently on file CRITERIA MET - [facility] CARE PROVIDERS [facility] Case Management 12/07/2019-[facility] PHONE: [phone] Yasir has no Care Guidelines for this patient. Care History Medical/Surgical 12/07/2019 [facility] - PATIENT IS [facility] ELIGIBLE, \T\middot;\T\nbsp; PLEASE REFER PATIENT TO [facility] FOR NON EMERGENT MEDICAL NEEDS. \T\middot;\T\nbsp; [facility] CAN SEE PATIENTS SAME DAY FOR APTS IF PATIENT CALLS FIRST THING IN THE MORNING. E.D. VISIT COUNT (12 MO.) [address] [place] [address] TOTAL 4 NOTE: Visits indicate total known visits. 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
--- NOTE | 2022-07-15 14:03 | EKG ---
[facility] [address] [facility] [place] [address] Signed Normal sinus rhythm Rightward axis Borderline ECG When compared with ECG of 02-DEC-2021 05:15, No significant change was found Confirmed by FRANCESCA HARO MD ([id number]) on 07/15/2022 2:03:08 PM Electronically Signed By: FRANCESCA HARO MD 07/15/22 1403 PATIENT NAME: AUGUST DONOVAN Electrocardiogram DATE OF : 83 PHYSICIAN: FRANCESCA HARO MD REPORT #: [id number] REPORT IS CONFIDENTIAL AND NOT TO BE RELEASED WITHOUT AUTHORIZATION
== END 2022-07-14 15:33 | disposition home or self-care (01) ==
LOC: ED 13:43
DX: R07.89 Other chest pain (principal); R09.89 Other specified symptoms and signs involving the circulatory and respiratory systems; Z91.040 Latex allergy status; Z79.899 Other long term (current) drug therapy
CPT/HCPCS: 36415; 71045; 80053; 83735; 84484; 85025; 93005; 93010; 99285-25

== ENCOUNTER 2023-03-19 07:50 | Emergency (ER) | payer OTHER ==
[~2023-03-19] VITALS: Ht 152.4 cm; Wt 88.9 kg
[~2023-03-19 07:50] MED LIST changes: +ONDANSETRON ODT8 MG PO
--- OUTSIDE RECORDS SUMMARY | 2023-03-19 07:52 | XMS ---
PreManage Notification: AUGUST DONOVAN Security Regulatory Analyst Events No recent Security Events currently on file CRITERIA MET - [facility] CARE PROVIDERS [facility] Case Management 12/07/2019-[facility] PHONE: [phone] -, [place]- [facility]ist: [facility] PHONE: [phone] Yasir has no Care Guidelines for this patient. Care History Medical/Surgical 12/07/2019 [facility] - PATIENT IS [facility] ELIGIBLE, \T\middot;\T\nbsp; PLEASE REFER PATIENT TO [facility] FOR NON EMERGENT MEDICAL NEEDS. \T\middot;\T\nbsp; [facility] CAN SEE PATIENTS SAME DAY FOR APTS IF PATIENT CALLS FIRST THING IN THE MORNING. E.D. VISIT COUNT ([address] [facility] TOTAL 4 NOTE: Visits indicate total known visits. ED/UCC VISIT TRACKING (12 MO.) 03/19/2023 07:50 [facility] [place] TYPE: Emergency COMPLAINT: - CHEST PAIN 11/04/2022 05:11 [facility] [place] TYPE: Emergency COMPLAINT: - HEADACHE,DIZZY DIAGNOSES: - Headache, unspecified - Latex allergy status - Migraine, unspecified, not intractable, without status migrainosus - Other moth exterminator (current) drug therapy 10/04/2022 11:51 [facility] [place] TYPE: Emergency COMPLAINT: - CHEMICAL EXPOSURE DIAGNOSES: - Headache, unspecified - Latex allergy status - Other moth exterminator (current) drug therapy - Toxic effect of unspecified pesticide, accidental (unintentional), initial encounter - Vomiting, unspecified 07/14/2022 13:43 [facility] [place] TYPE: Emergency COMPLAINT: - CHEST PAIN DIAGNOSES: - Latex allergy status - Other chest pain - Other fpc (current) drug therapy - Other specified symptoms and signs involving the circulatory and respiratory systems INPATIENT VISIT TRACKING (12 MO.) No inpatient visits to display in this time frame [email or web address]
[2023-03-19 08:05] LABS: BASOPHILS 0.7 % (0-2); EOSINOPHILS 3.1 % (0-6); HEMATOCRIT 40.5 % (35.0-50.0); HEMOGLOBIN 13.2 g/dL (12.0-18.0); LYMPHOCYTES 41.1 % (24-44); MCH 27.7 (27-36); MCHC 32.5 g/dl (30-36); MCV 85.1 fl (81-99); MONOCYTES 7.5 % (0-12); NEUTROPHILS 47.6 % (39-80); PLATELET COUNT 309 K/uL (140-440); RBC 4.76 M/ul (4.3-5.7); RDW 15.2 (10.5-15.0)
[2023-03-19 08:25] LABS: ALBUMIN 4.2 g/dL (3.4-5.0); ALBUMIN/GLOBULIN RATIO 1.14 (1.1-2.4); ANION GAP 15.6 (7-21); BILIRUBIN, TOTAL 0.2 ng/dL (0.2-1.0); BUN/CREATININE RATIO 10.16 (6.0-28.6); CALCIUM 8.4 mg/dL (8.5-10.1); CREATININE, SERUM 1.18 mg/dL (0.70-1.30); MAGNESIUM 1.6 mg/dL (1.8-2.4); POTASSIUM 3.6 mmol/L (3.5-5.1); PROTEIN, TOTAL 7.9 g/dL (6.4-8.2)
[2023-03-19] MEDS ORDERED: PRILOSEC OTC20 MG PO (08:52)
[2023-03-19] MEDS ORDERED: ONDANSETRON ODT4 MG PO (08:52)
[2023-03-19 10:15] VITALS: BP 138/77
--- NOTE | 2023-03-19 15:22 | EKG ---
[facility] [address] [facility] [place], [place] [address] Signed Sinus tachycardia Rightward axis Borderline ECG No previous ECGs available Confirmed by SALTY VO MD ([id number]) on 03/19/2023 3:22:37 PM Electronically Signed By: SALTY VO 03/19/23 1522 PATIENT NAME: AUGUST DONOVAN Electrocardiogram DATE OF : 83 PHYSICIAN: SALTY VO REPORT #: [id number] REPORT IS CONFIDENTIAL AND NOT TO BE RELEASED WITHOUT AUTHORIZATION
== END 2023-03-19 10:05 | disposition home or self-care (01) ==
LOC: ED 07:50
PROVIDERS: Emergency Medicine
DX: K29.20 Alcoholic gastritis without bleeding (principal); F10.90 Alcohol use, unspecified, uncomplicated; I10 Essential (primary) hypertension; F31.9 Bipolar disorder, unspecified; F41.9 Anxiety disorder, unspecified; Z91.040 Latex allergy status; Z79.899 Other long term (current) drug therapy; Z90.49 Acquired absence of other specified parts of digestive tract
CPT/HCPCS: 36415; 74022; 80053; 83690; 83735; 84484; 85025; 85379; 93005; 93010; J2060; J3475; J7030

== ENCOUNTER 2023-12-19 17:58 | Emergency (ER) | payer OTHER ==
[~2023-12-19] VITALS: Ht 152.4 cm; Wt 84.9 kg
[~2023-12-19 17:58] MED LIST changes: +ATORVASTATIN CA10 MG PO; +COLESEVELAM HC625 MG PO; +LISINOPRIL10 MG PO; +METHOCARBAMOL500 MG PO; +NAPROXEN250 MG PO; +ONDANSETRON ODT4 MG PO; +TAMSULOSIN HCL0.4 MG PO; +TRAMADOL HCL50 MG PO
[2023-12-19] MEDS ORDERED: SUCRALFATE1 GM PO (18:21)
[2023-12-19] MEDS ORDERED: GABAPENTIN300 MG PO (18:21)
[2023-12-19] MEDS ORDERED: NAPROXEN500 MG PO (18:21)
[2023-12-19 18:29] LABS: BILIRUBIN, URINE POSITIVE (negative); BLOOD/HGB, URINE LARGE (Negative); KETONE, URINE TRACE (Negative); LEUK ESTERASE, URINE MODERATE (negative); NITRITE, URINE POSITIVE (negative); PH, URINE 6.5 (5-7)
[2023-12-19] MEDS ORDERED: SODIUM CHLORIDE 0.9% 1,000 ML IV ONE (18:30)
[2023-12-19] MEDS ORDERED: HYDROmorphone HCL 1 MG/ML SYR IV ONE (18:30)
[2023-12-19] MEDS ORDERED: ondansetron HCL 4 MG/2 ML VIAL IV ONE (18:30)
[2023-12-19 18:33] LABS: BACTERIA, URINE 1+ /hpf (negative); CASTS, URINE NONE SEEN \\lpf; COLLECTION TYPE, URINE CLEAN CATCH; CRYSTALS, URINE NONE SEEN (0-1+); EPITHELIAL CELLS, URINE NONE SEEN /lpf (0-1+); RED BLOOD CELLS, URINE 21-40 /hpf (0-5); REFLEX CULTURE, URINE Yes (No)
[2023-12-19 18:34] LABS: WHITE BLOOD CELLS, URINE 41-50 /HPF (0-5)
[2023-12-19 18:39] LABS: BASOPHILS 0.2 % (0-2); EOSINOPHILS 2.8 % (0-6); HEMATOCRIT 37.6 % (35.0-50.0); HEMOGLOBIN 12.3 g/dL (12.0-18.0); LYMPHOCYTES 23.8 % (24-44); MCH 25.9 (27-36); MCHC 32.6 g/dl (30-36); MCV 79.3 fl (81-99); MONOCYTES 5.4 % (0-12); NEUTROPHILS 67.8 % (39-80); PLATELET COUNT 322 K/uL (140-440); RBC 4.74 M/ul (4.3-5.7); RDW 17.9 (10.5-15.0)
[2023-12-19 18:54] LABS: ALBUMIN 3.6 g/dL (3.4-5.0); ANION GAP 14.5 (7-21); BILIRUBIN, TOTAL 0.6 ng/dL (0.2-1.0); BUN/CREATININE RATIO 10.6 (6.0-28.6); CALCIUM 8.5 mg/dL (8.5-10.1); CREATININE, SERUM 1.32 mg/dL (0.70-1.30); POTASSIUM 3.5 mmol/L (3.5-5.1); PROTEIN, TOTAL 7.2 g/dL (6.4-8.2)
[2023-12-19] MEDS ORDERED: levoFLOXacin 500 MG TAB PO ONE (19:30)
[2023-12-19] MEDS ORDERED: CEFDINIR300 MG PO (19:32)
[2023-12-19 19:39] VITALS: BP 130/96
[2023-12-23] MEDS ORDERED: OMEPRAZOLE20 MG PO (15:46)
[2023-12-24] MEDS ORDERED: CLONAZEPAM0.5 MG PO (11:35)
[2023-12-24] MEDS ORDERED: FEROSUL325 MG PO (11:35)
== END 2023-12-19 19:39 | disposition home or self-care (01) ==
LOC: ED 17:58
PROVIDERS: Emergency Medicine
DX: N30.91 Cystitis, unspecified with hematuria (principal); Z91.040 Latex allergy status; Z79.899 Other long term (current) drug therapy
CPT/HCPCS: 36415; 74176; 80053; 81001; 85025; 87088; 96374; 96375; 99284-25; J1170; J2405; J7030

== ENCOUNTER 2024-02-04 00:49 | Inpatient (IN) | payer OTHER ==
[~2024-02-04] VITALS: Ht 152.4 cm; Wt 84.7 kg
[2024-02-04] VITALS (11 sets, daily range): BP systolic 114–150; BP diastolic 75–102
[~2024-02-04 00:49] MED LIST changes: -AMITRIPTYLINE H10 MG PO; +AMITRIPTYLINE H50 MG PO; +CEFDINIR300 MG PO; +CLONAZEPAM0.5 MG PO; +FEROSUL325 MG PO; +GABAPENTIN300 MG PO; +NAPROXEN500 MG PO; +OMEPRAZOLE20 MG PO; +SUCRALFATE1 GM PO
[2024-02-04] MEDS ORDERED: SERTRALINE HCL50 MG PO (01:08)
[2024-02-04] MEDS ORDERED: FOLIC ACID 1 MG/0.2 ML ML ONE (01:11)
[2024-02-04] MEDS ORDERED: ondansetron HCL 4 MG/2 ML VIAL IV ONE ×2 (01:15→14:30)
[2024-02-04] MEDS ORDERED: FAMOTIDINE 20 MG/ 2 ML VIAL IV ONE (01:15)
[2024-02-04] MEDS ORDERED: MULTIVITAMINS 10 ML,FOLIC ACID 1 MG,THIAMINE HCL 100 MG in SODIUM CHLORIDE 0.9% 1,000 ML IV ONE (01:15)
[2024-02-04 01:18] LABS: BASOPHILS 0.6 % (0-2); EOSINOPHILS 1.1 % (0-6); HEMATOCRIT 49.2 % (35.0-50.0); HEMOGLOBIN 16.3 g/dL (12.0-18.0); MCH 27.9 (27-36); MCHC 33.1 g/dl (30-36); MCV 84.3 fl (81-99); MONOCYTES 8.8 % (0-12); NEUTROPHILS 60.5 % (39-80); PLATELET COUNT 423 K/uL (140-440); RBC 5.84 M/ul (4.3-5.7); RDW 20.4 (10.5-15.0)
[2024-02-04 01:19] LABS: BILIRUBIN, URINE NEGATIVE (negative); BLOOD/HGB, URINE NEGATIVE (Negative); KETONE, URINE NEGATIVE (Negative); LEUK ESTERASE, URINE NEGATIVE (negative); NITRITE, URINE NEGATIVE (negative)
[2024-02-04 01:34] LABS: AMPHETAMINES, URINE NEGATIVE (NEGATIVE); BARBITURATES, URINE NEGATIVE (NEGATIVE); BENZODIAZEPINE, URINE NEGATIVE (NEGATIVE); BUPRENORPHINE, URINE NEGATIVE (NEGATIVE); CANNABINOID, URINE POSITIVE (NEGATIVE); COCAINE, URINE NEGATIVE (NEGATIVE); ECSTASY, URINE NEGATIVE (NEGATIVE); FENTANYL, URINE NEGATIVE (NEGATIVE); METHADONE, URINE NEGATIVE (NEGATIVE); OPIATES, URINE NEGATIVE (NEGATIVE); OXYCODONE, URINE NEGATIVE (NEGATIVE); PHENCYCLIDINE, URINE NEGATIVE (NEGATIVE)
[2024-02-04 01:36] LABS: ACETAMINOPHEN 0 ug/mL (10-30); ALBUMIN 4.4 g/dL (3.4-5.0); ALBUMIN/GLOBULIN RATIO 1.02 (1.1-2.4); ALCOHOL, MEDICAL 146 ng/dL (<3); ALKALINE PHOSPHATASE 193 U/L (46-116); ALT (SGPT) 68 U/L (14-59); ANION GAP 18.8 (7-21); AST (SGOT) 36 U/L (15-37); BILIRUBIN, TOTAL 0.3 ng/dL (0.2-1.0); BUN/CREATININE RATIO 6.36 (6.0-28.6); CALCIUM 8.9 mg/dL (8.5-10.1); CARBON DIOXIDE 22 mmol/L (21-32); CHLORIDE 102 mmol/L (98-107); GLOMERULAR FILTRATION RATE,EST 87 mL/min (>60); POTASSIUM 3.8 mmol/L (3.5-5.1); PROTEIN, TOTAL 8.7 g/dL (6.4-8.2); SALICYLATE 1.5 mg/dL (2.8-20.0); TSH, 3RD GENERATION 1.772 uIU/mL (0.358-3.740); UREA NITROGEN 7 mg/dL (7-18)
[2024-02-04] MEDS ORDERED: ACETAMINOPHEN 325 MG TAB PO ONE (01:45)
[2024-02-04] MEDS ORDERED: LORazepam 2 MG/ML VIAL IV ONE (01:45)
[2024-02-04] MEDS ORDERED: LORazepam 2 MG/ML VIAL IV SCH (02:00)
[2024-02-04] MEDS ORDERED: LACTATED RINGER'S 1,000 ML IV SCH (02:00)
[2024-02-04] MEDS ORDERED: LORazepam 2 MG/ML VIAL IV/IM PRN ×2 (02:00→08:00)
[2024-02-04] MEDS ORDERED: LORazepam 1 MG TAB PO PRN (02:00)
[2024-02-04] MEDS ORDERED: LORazepam 2 MG TABLET PO SCH (02:00)
[2024-02-04] MEDS ORDERED: PHENOBARBITAL SOD 130 MG/ML VIAL IV ONE (08:00)
[2024-02-04] MEDS ORDERED: ENOXAPARIN SODIUM 40 MG/0.4 ML SYR SUB-Q SCH (09:00)
[2024-02-04] MEDS ORDERED: PANTOPRAZOLE SODIUM 40 MG TABEC PO SCH (09:14)
[2024-02-04] MEDS ORDERED: SERTRALINE HCL 50 MG TAB PO SCH (09:15)
[2024-02-04] MEDS ORDERED: GABAPENTIN 300 MG CAP PO SCH (09:16)
[2024-02-04] MEDS ORDERED: MYRBETRIQ50 MG PO (10:22)
[2024-02-04] MEDS ORDERED: DICLOFENAC SODI50 MG PO (10:23)
[2024-02-04] MEDS ORDERED: AMITRIPTYLINE100 MG PO (10:50)
[2024-02-04] MEDS ORDERED: VITAMIN C500 M1 PO (10:52)
[2024-02-04] MEDS ORDERED: SUCRALFATE 1 GM TAB PO SCH (11:00)
[2024-02-04] MEDS ORDERED: UREA198 GM TOP (11:46)
[2024-02-04] MEDS ORDERED: PHARMACY RENAL DOSE ADJUSTMENT 1 DOSE MISC PO SCH (12:00)
[2024-02-04] MEDS ORDERED: IBUPROFEN 400 MG TAB PO ONE (14:30)
[2024-02-04] MEDS ORDERED: IBUPROFEN 400 MG TAB PO PRN (14:45)
[2024-02-04] MEDS ORDERED: ondansetron HCL 4 MG/2 ML VIAL IV PRN (14:45)
[2024-02-04] MEDS ORDERED: AMITRIPTYLINE HCL 10 MG TAB PO SCH (21:00)
[2024-02-04] MEDS ORDERED: MELATONIN 3 MG TAB PO SCH (21:00)
[2024-02-05] VITALS (16 sets, daily range): BP systolic 97–147; BP diastolic 66–87
[2024-02-05 05:34] LABS: BASOPHILS 0.4 % (0-2); EOSINOPHILS 3.7 % (0-6); HEMATOCRIT 41.6 % (35.0-50.0); HEMOGLOBIN 13.9 g/dL (12.0-18.0); LYMPHOCYTES 26.2 % (24-44); MCHC 33.4 g/dl (30-36); MCV 83.7 fl (81-99); MONOCYTES 9.3 % (0-12); NEUTROPHILS 60.4 % (39-80); PLATELET COUNT 281 K/uL (140-440); RBC 4.98 M/ul (4.3-5.7); RDW 19.7 (10.5-15.0)
[2024-02-05 05:45] LABS: ANION GAP 10.9 (7-21); BUN/CREATININE RATIO 10.47 (6.0-28.6); CALCIUM 8.3 mg/dL (8.5-10.1); CREATININE, SERUM 1.05 mg/dL (0.70-1.30); MAGNESIUM 1.8 mg/dL (1.8-2.4); POTASSIUM 3.9 mmol/L (3.5-5.1)
[2024-02-05] MEDS ORDERED: THIAMINE HCL 200 MG/2 ML VIAL IV SCH (09:00)
[2024-02-05] MEDS ORDERED: FOLIC ACID 1 MG/0.2 ML ML IV SCH (09:00)
[2024-02-05] MEDS ORDERED: hydrOXYzine pamoate 25 MG CAP PO PRN (12:15)
[2024-02-05] MEDS ORDERED: CHLORDIAZEPOXIDE 25 MG CAP PO SCH (14:00)
[2024-02-06] VITALS (13 sets, daily range): BP systolic 106–132; BP diastolic 66–86
[2024-02-06 05:26] LABS: BASOPHILS 0.6 % (0-2); EOSINOPHILS 4.1 % (0-6); HEMATOCRIT 42.1 % (35.0-50.0); LYMPHOCYTES 30.8 % (24-44); MCH 27.9 (27-36); MCHC 33.3 g/dl (30-36); MCV 83.8 fl (81-99); NEUTROPHILS 56.5 % (39-80); PLATELET COUNT 317 K/uL (140-440); RBC 5.02 M/ul (4.3-5.7); RDW 19.2 (10.5-15.0)
[2024-02-06 05:35] LABS: ALBUMIN 3.8 g/dL (3.4-5.0); ALBUMIN/GLOBULIN RATIO 1.06 (1.1-2.4); ANION GAP 10.8 (7-21); BILIRUBIN, TOTAL 0.6 ng/dL (0.2-1.0); BUN/CREATININE RATIO 7.07 (6.0-28.6); CREATININE, SERUM 1.13 mg/dL (0.70-1.30); PHOSPHORUS, INORGANIC 3.9 mg/dL (2.5-4.9); POTASSIUM 3.8 mmol/L (3.5-5.1); PROTEIN, TOTAL 7.4 g/dL (6.4-8.2)
[2024-02-06] MEDS ORDERED: THIAMINE HCL 100 MG TAB PO SCH (09:00)
[2024-02-06] MEDS ORDERED: FOLIC ACID 1 MG TAB PO SCH (09:00)
[2024-02-06] MEDS ORDERED: PANTOPRAZOLE SODIUM 40 MG TABEC PO SCH (09:00)
[2024-02-06] MEDS ORDERED: CHLORDIAZEPOXIDE 25 MG CAP PO SCH (09:00)
[2024-02-06] MEDS ORDERED: Trospium Chloride 20 MG TABLET PO SCH (09:00)
[2024-02-06] MEDS ORDERED: GABAPENTIN 300 MG CAP PO SCH (21:00)
[2024-02-06] MEDS ORDERED: AMITRIPTYLINE HCL 100 MG TAB PO SCH (21:00)
[2024-02-07] VITALS (9 sets, daily range): BP systolic 90–119; BP diastolic 59–74
[2024-02-07 05:19] LABS: BASOPHILS 0.5 % (0-2); EOSINOPHILS 3.4 % (0-6); HEMATOCRIT 43.9 % (35.0-50.0); HEMOGLOBIN 14.8 g/dL (12.0-18.0); LYMPHOCYTES 32.7 % (24-44); MCH 28.2 (27-36); MCHC 33.7 g/dl (30-36); MCV 83.5 fl (81-99); MONOCYTES 6.7 % (0-12); NEUTROPHILS 56.7 % (39-80); PLATELET COUNT 293 K/uL (140-440); RBC 5.25 M/ul (4.3-5.7); RDW 18.9 (10.5-15.0)
[2024-02-07 05:31] LABS: ANION GAP 9.9 (7-21); BUN/CREATININE RATIO 8.18 (6.0-28.6); CALCIUM 9.1 mg/dL (8.5-10.1); CREATININE, SERUM 1.1 mg/dL (0.70-1.30); PHOSPHORUS, INORGANIC 4.1 mg/dL (2.5-4.9); POTASSIUM 3.9 mmol/L (3.5-5.1)
[2024-02-07] MEDS ORDERED: CHLORDIAZEPOXIDE 25 MG CAP PO SCH (09:00)
[2024-02-07] MEDS ORDERED: CHLORDIAZEPOXID25 MG PO (10:54)
== END 2024-02-07 11:35 | disposition home or self-care (01) | DRG 897 ==
LOC: ED 00:49 → CCU 02:09
PROVIDERS: Internal Medicine; Student in an Organized Health Care Education/Training Program; ADMIT Student in an Organized Health Care Education/Training Program; ATTEND Student in an Organized Health Care Education/Training Program
DX: F10.139 Alcohol abuse with withdrawal, unspecified (principal); R11.2 Nausea with vomiting, unspecified; R51.9 Headache, unspecified; F31.9 Bipolar disorder, unspecified; Q05.9 Spina bifida, unspecified; F41.9 Anxiety disorder, unspecified; N40.0 Benign prostatic hyperplasia without lower urinary tract symptoms; R10.9 Unspecified abdominal pain; F12.90 Cannabis use, unspecified, uncomplicated; K21.9 Gastro-esophageal reflux disease without esophagitis; Z98.890 Other specified postprocedural states; Z90.49 Acquired absence of other specified parts of digestive tract; Z91.040 Latex allergy status; Z79.899 Other long term (current) drug therapy; Y90.6 Blood alcohol level of 120-199 mg/100 ml
CPT/HCPCS: 36415; 71045; 80048; 80053; 80307; 81003; 83690; 83735; 84100; 84443; 85025; A9270; G0480; J1650; J2060; J2405; J2560; J3411; J7030; Q0177

== ENCOUNTER 2024-02-24 10:08 | Day surgery (SDC) | payer OTHER ==
[2024-02-17 14:28] VITALS: BP 110/66
[~2024-02-24] VITALS: Ht 152.4 cm; Wt 81.8 kg
[~2024-02-24 10:08] MED LIST changes: +AMITRIPTYLINE100 MG PO; +CHLORDIAZEPOXID25 MG PO; +DICLOFENAC SODI50 MG PO; +IBLOOD GLUCOSE TEST STRIP 1 EA TEST VI PRN; +LACTATED RINGER'S 1,000 ML IV SCH; +LIDOCAINE HCL 1% 5 ML SDV INJ ONE; +MYRBETRIQ50 MG PO; +SERTRALINE HCL50 MG PO; +UREA198 GM TOP; +VITAMIN C500 M1 PO
[2024-02-24 10:22] VITALS: BP 140/94
[2024-02-24] MEDS ORDERED: propofoL 200 MG/20 ML VIAL ONE (10:42)
[2024-02-24] MEDS ORDERED: LACTATED RINGER'S 1,000 ML IV ONE (11:41)
--- NOTE | 2024-02-24 11:59 | NUR ---
02/24/24 1159 Priya Welsh 1151-PT ARRIVES TO PACU, RESTING ON LT SIDE, VSS ON 10L VIA MASK AND OPA IN PLACE. PT NOT RESPONSIVE TO NOXIOUS STIMULI.
[2024-02-24 12:16] VITALS: BP 132/91
--- NOTE | 2024-02-24 13:37 | OR ---
[facility] [address] [place], [place] [address] Signed DATE OF OPERATION: 02/24/2024 SURGEON: Fransisca Collazo MD PREOPERATIVE DIAGNOSES: 1. Intermittent chronic rectal bleeding. 2. Internal and external hemorrhoids. 3. Fecal incontinence with history of spina bifida. 4. History of constipation, diarrhea. POSTOPERATIVE DIAGNOSIS: Minimal internal and external hemorrhoids. PROCEDURE: Colonoscopy with cold biopsies throughout the colon and rectum. ESTIMATED BLOOD LOSS: None. INDICATIONS: Nicole is a 39-year-old gentleman asked to see me for a followup colonoscopy. 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 He does not seem to have any nerve root compression. In 2016 at the age of 30, he underwent his colonoscopy. He had his gallbladder out in his early 20s. He was having constipation and diarrhea following the gallbladder surgery. He mentions chronic intermittent small amounts of rectal bleeding. We found that he had internal and external hemorrhoids. His random biopsies from the colon were negative. He always requires monitored anesthesia care given his full around face and his complex medical history along with polysubstance abuse. We recommended he come back at age 49 for a followup screening colonoscopy. It was felt that his symptoms were getting worse. He seems to feel that his fecal incontinence is increasing. His primary care provider added colesevelam to his medical regimen. He said that has really helped the diarrhea. That would go long with biliary diarrhea after his gallbladder surgery. He said he has used docusate in the past for constipation. He has never embraced any fiber products. He said he has no family history of colon cancer or polyps. He was sent back by his primary care provider for repeat colonoscopy with biopsies. In the office, I gave him a pamphlet on colonoscopy. We had reviewed the nature of the test. There is risk including, but not limited to gas bloating, crampy abdominal pain, bleeding, perforation requiring surgery, and missed diagnosis. We also reviewed the written instructions for the bowel prep line by line. Electronically Signed By: FRANSISCA COLLAZO MD 02/24/24 1337 PATIENT NAME: NICOLE DONOVAN OPERATIVE REPORT DATE OF : 83 REPORT #: [id number] PHYSICIAN: FRANSISCA COLLAZO MD PCP: SUMAYA AGUIAR PAC REPORT IS CONFIDENTIAL AND NOT TO BE RELEASED WITHOUT AUTHORIZATION [address] [address] Signed Same bowel prep he took before. He also understands the need for monitored anesthesia care given his complex past medical history and polysubstance abuse. He had expressed understanding and wished to proceed. He understands an adult person has to take him home afterwards. He had expressed understanding and wished to proceed. PROCEDURE IN DETAIL: Nicole was taken into our endoscopy suite and placed in the left lateral decubitus position. For some reason, he decided to eat lunch yesterday. However, he felt his bowel prep went well. He was given monitored anesthesia care propofol infusion per our nurse mechanical maintenance technician. A digital rectal exam was performed. He had small circumferential external hemorrhoids. With propofol sedation he actually had decent anal sphincter tone, although his anal canal was not very long. That may explain some of his incontinence. There were no masses. The adult colonoscope was introduced and advanced under direct visualization of camera. He had multiple areas of dark liquid particulate stool matter that I could not quite suction out completely through the scope. We made our way very slowly and carefully up through his left colon and finally around into the cecum itself. We could see the appendiceal orifice. We could also see the ileocecal valve. The scope was then slowly withdrawn. We took several pictures throughout for photodocumentation. We also took biopsies throughout the colon and rectum for pathologic review. We saw no inflammation. There were no polyps. There were no diverticula. Once in the rectum, he had a little too much liquid particulate stool matter we could retroflex the scope. After this, the gas was suctioned out, colonoscope removed. Nicole tolerated the procedure quite well. RECOMMENDATIONS: I will see Nicole back in my office in 7 to 14 days to review his results. I think he is still having some trouble with biliary diarrhea associated with his cholecystectomy in the remote past. Fransisca Collazo MD ALB/MODL /[id number] cc: Fransisca Collazo MD Electronically Signed By: FRANSISCA COLLAZO MD 02/24/24 1337 PATIENT NAME: NICOLE DONOVAN OPERATIVE REPORT DATE OF : 83 REPORT #: [id number] PHYSICIAN: FRANSISCA COLLAZO MD PCP: SUMAYA AGUIAR PAC REPORT IS CONFIDENTIAL AND NOT TO BE RELEASED WITHOUT AUTHORIZATION [address] [place], [place] [address] Signed FUAD Mendoza Copies: FRANSISCA COLLAZO MD ~ Electronically Signed By: FRANSISCA COLLAZO MD 02/24/24 1337 PATIENT NAME: NICOLE DONOVAN OPERATIVE REPORT DATE OF : 83 REPORT #: [id number] PHYSICIAN: FRANSISCA COLLAZO MD PCP: SUMAYA AGUIAR PAC REPORT IS CONFIDENTIAL AND NOT TO BE RELEASED WITHOUT AUTHORIZATION
--- NOTE | 2024-02-26 10:28 | PATH ---
[facility] [address] [facility] [place] [address] Signed SPECIMEN(S): A ASCENDING COLON BIOPSY SPECIMEN(S): B TRANSVERSE COLON BIOPSY SPECIMEN(S): C DESCENDING COLON BIOPSY SPECIMEN(S): D SIGMOID COLON BIOPSY SPECIMEN(S): E RECTUM SPECIMEN SOURCE: A. ASCENDING COLON BIOPSY B. TRANSVERSE COLON BIOPSY C. DESCENDING COLON BIOPSY D. SIGMOID COLON BIOPSY E. RECTUM CLINICAL HISTORY: Pre-op: Fecal incontinence, diarrhea. Postop: Unremarkable FINAL PATHOLOGIC DIAGNOSIS: A. Ascending colon biopsy: - Colonic mucosa with no significant pathologic abnormalities. B. Transverse colon biopsy: - Colonic mucosa with no significant pathologic abnormalities. C. Descending colon biopsy: - Colonic mucosa with no significant pathologic abnormalities. D. Sigmoid: Biopsy: - Colonic mucosa with no significant pathologic abnormalities. E. Rectum biopsy: - Colonic mucosa with no significant pathologic abnormalities. NA MICROSCOPIC EXAMINATION: Histologic sections of all submitted blocks are examined by light microscopy. These findings, together with the gross examination, support the pathologic diagnosis. GROSS DESCRIPTION: A. The specimen, labeled and designated "Dain Donovan, ascending colon biopsy," is received in formalin and consists of one wynn soft tissue fragment, 0.3 cm. Entirely submitted in (A1). B. The specimen, labeled and designated "Dain Donovan, transverse colon biopsy," is received in formalin and consists of three wynn soft tissue fragments, ranging from 0.1-0.2 cm. Entirely submitted in PATIENT NAME: AUGUST DONOVAN WIN PATHOLOGY DATE OF : 83 REPORT #: [id number] PHYSICIAN: JAMAAL PERKINS PCP: SUMAYA AGUIAR PAC REPORT IS CONFIDENTIAL AND NOT TO BE RELEASED WITHOUT AUTHORIZATION [facility] [address] [place], [place] [address] Signed (B1). C. The specimen, labeled and designated "[place], L, descending colon biopsy," is received in formalin and consists of one wynn soft tissue fragment, 0.3 cm. Entirely submitted in (C1). D. The specimen, labeled and designated "S[place]at, L, sigmoid: Biopsy," is received in formalin and consists of one wynn soft tissue fragment, 0.4 cm. Entirely submitted in (D1). E. The specimen, labeled and designated "[place]at, L, rectum biopsy," is received in formalin and consists of one wynn soft tissue fragment, 0.2 cm. Entirely submitted in (E1). AB (under the direct supervision of a pathologist) The Gross Description was prepared using a voice recognition system. The report was reviewed for accuracy; however, sound-alike word errors, addition and/or deletions may occur. If there is any question about this report, please contact Client Services. ADDITIONAL NOTES: Immunohistochemical and/or in situ hybridization studies if performed in this case included appropriate positive controls that reacted as expected. This test was developed and its performance characteristics determined by [facility]. It has not been cleared or approved by the U.S. Food and Drug Administration. The FDA has determined that such clearance or approval is not necessary. This test is used for clinical purposes. It should not be regarded as investigational or for research. [facility] is certified under the Clinical Laboratory Improvement Amendments of 1988 (CLIA) as qualified to perform high complexity clinical laboratory testing. PERFORMING LABORATORY: Technical component was performed by [facility], [address] [place] [id number] (CLIA# [id number]). Professional interpretation was performed by [facility] - [facility], [address] [place] [id number] (CLIA#: [id number]). Diagnostician: Kay Hoffman MD Pathologist Electronically Signed 02/26/2024 Copies: PATIENT NAME: AUGUST DONOVAN PATHOLOGY DATE OF : 83 REPORT #: [id number] PHYSICIAN: JAMAAL PATHOLOGY PCP: SUMAYA AGUIAR PAC REPORT IS CONFIDENTIAL AND NOT TO BE RELEASED WITHOUT AUTHORIZATION [facility] [address] [place] [address] Signed ~ PATIENT NAME: AUGUST DONOVAN PATHOLOGY DATE OF : 83 REPORT #: [id number] PHYSICIAN: JAMAAL PATHOLOGY PCP: SUMAYA AGUIAR PAC REPORT IS CONFIDENTIAL AND NOT TO BE RELEASED WITHOUT AUTHORIZATION
== END 2024-02-24 12:38 | disposition home or self-care (01) ==
LOC: DS 10:08
PROVIDERS: ATTEND Colon & Rectal Surgery
PROC: 0DBE8ZX Excision of Large Intestine, Via Natural or Artificial Opening Endoscopic, Diagnostic (ICD-10-PCS; 2024-02-24)
PROC: 0DBP8ZX Excision of Rectum, Via Natural or Artificial Opening Endoscopic, Diagnostic (ICD-10-PCS; principal; 2024-02-24 11:25)
DX: K64.8 Other hemorrhoids (principal); K64.4 Residual hemorrhoidal skin tags; I10 Essential (primary) hypertension; F31.81 Bipolar II disorder; E66.9 Obesity, unspecified; Z68.35 Body mass index [BMI] 35.0-35.9, adult; Z79.899 Other long term (current) drug therapy; Z91.040 Latex allergy status; Z90.49 Acquired absence of other specified parts of digestive tract
CPT/HCPCS: 00811; J2704; J7121

== ENCOUNTER 2024-05-17 13:41 | Emergency (ER) | payer OTHER ==
[~2024-05-17] VITALS: Ht 152.4 cm; Wt 83.0 kg
[~2024-05-17 13:41] MED LIST changes: -IBLOOD GLUCOSE TEST STRIP 1 EA TEST VI PRN; -LACTATED RINGER'S 1,000 ML IV SCH; -LIDOCAINE HCL 1% 5 ML SDV INJ ONE
[2024-05-17 14:05] LABS: BASOPHILS 0.3 % (0-2); EOSINOPHILS 1.9 % (0-6); HEMATOCRIT 42.9 % (35.0-50.0); HEMOGLOBIN 14.3 g/dL (12.0-18.0); LYMPHOCYTES 23.7 % (24-44); MCHC 33.3 g/dl (30-36); MCV 84.2 fl (81-99); MONOCYTES 7.3 % (0-12); NEUTROPHILS 66.8 % (39-80); PLATELET COUNT 300 K/uL (140-440); RBC 5.09 M/ul (4.3-5.7); RDW 14.8 (10.5-15.0)
[2024-05-17 14:11] LABS: PARTIAL THROMBOPLASTIN TIME 23.8 Sec (22.9-41.3)
[2024-05-17 14:12] LABS: INR 0.98 (0.80-1.30); PROTIME 12.8 Sec (11.2-14.2)
[2024-05-17 14:16] LABS: ALCOHOL, MEDICAL <3 ng/dL (<3); CHOLESTEROL 160 mg/dL (<200); CHOLESTEROL/HDL RATIO 3.6; HDL CHOLESTEROL 45 (40-60); LDL CHOLESTEROL 85 mg/dL (< 129); TRIGLYCERIDES 149 ng/dL (<150); VLDL CHOLESTEROL 29
[2024-05-17 14:17] LABS: ALBUMIN 4.2 g/dL (3.4-5.0); ALBUMIN/GLOBULIN RATIO 1.24 (1.1-2.4); ANION GAP 14.1 (7-21); BILIRUBIN, TOTAL 0.4 ng/dL (0.2-1.0); BUN/CREATININE RATIO 16.3 (6.0-28.6); CREATININE, SERUM 0.92 mg/dL (0.70-1.30); POTASSIUM 4.1 mmol/L (3.5-5.1); PROTEIN, TOTAL 7.6 g/dL (6.4-8.2)
[2024-05-17] MEDS ORDERED: TENECTEPLASE 50 MG/10 ML VIAL IV ONE (14:45)
[2024-05-17] MEDS ORDERED: SUCRALFATE1 GM PO (14:52)
[2024-05-17 16:45] VITALS: BP 115/75
[2024-05-17 17:00] LABS: AMPHETAMINES, URINE NEGATIVE (NEGATIVE); BARBITURATES, URINE NEGATIVE (NEGATIVE); BENZODIAZEPINE, URINE NEGATIVE (NEGATIVE); BUPRENORPHINE, URINE NEGATIVE (NEGATIVE); CANNABINOID, URINE POSITIVE (NEGATIVE); COCAINE, URINE NEGATIVE (NEGATIVE); ECSTASY, URINE NEGATIVE (NEGATIVE); FENTANYL, URINE NEGATIVE (NEGATIVE); METHADONE, URINE NEGATIVE (NEGATIVE); OPIATES, URINE NEGATIVE (NEGATIVE); OXYCODONE, URINE NEGATIVE (NEGATIVE); PHENCYCLIDINE, URINE NEGATIVE (NEGATIVE)
--- NOTE | 2024-05-17 18:22 | EKG ---
[facility] [address] [facility] [place], [place] [address] Signed Normal sinus rhythm Normal ECG When compared with ECG of 18-APR-2023 11:32, No significant change was found Confirmed by Sudha Lyle MD ([id number]) on 05/17/2024 6:22:14 PM Electronically Signed By: SUDHA LYLE MD 05/17/241821 PATIENT NAME: AUGUST DONOVAN Electrocardiogram DATE OF : 83 PHYSICIAN: SUDHA LYLE MD REPORT #: [id number] REPORT IS CONFIDENTIAL AND NOT TO BE RELEASED WITHOUT AUTHORIZATION
== END 2024-05-17 16:35 | disposition short-term general hospital (02) ==
LOC: ED 13:41
PROVIDERS: Emergency Medicine
DX: I63.9 Cerebral infarction, unspecified (principal); R29.810 Facial weakness; F32.A Depression, unspecified; Z91.040 Latex allergy status; Z79.899 Other long term (current) drug therapy
CPT/HCPCS: 36415; 70450; 70496; 70498; 71045; 80053; 80061; 80307; 83036; 84484; 85025; 85610; 85730; 93005; 93010; 99285-25; G0480; J3101; Q9967

== ENCOUNTER 2024-06-05 17:19 | Emergency (ER) | payer OTHER ==
[~2024-06-05] VITALS: Ht 152.4 cm; Wt 85.7 kg
[2024-06-05] MEDS ORDERED: NITROGLYCERIN 0.4 MG SUBL SL PRN (17:30)
[2024-06-05] MEDS ORDERED: ASPIRIN 81 MG CHEW PO ONE (17:30)
[2024-06-05 17:39] LABS: BASOPHILS 0.8 % (0-2); EOSINOPHILS 2.9 % (0-6); HEMATOCRIT 40.8 % (35.0-50.0); HEMOGLOBIN 13.7 g/dL (12.0-18.0); LYMPHOCYTES 24.9 % (24-44); MCH 28.3 (27-36); MCHC 33.4 g/dl (30-36); MCV 84.6 fl (81-99); MONOCYTES 6.5 % (0-12); NEUTROPHILS 64.9 % (39-80); PLATELET COUNT 309 K/uL (140-440); RBC 4.82 M/ul (4.3-5.7); RDW 15.3 (10.5-15.0)
[2024-06-05] MEDS ORDERED: KETOROLAC TROMETHAMINE 30 MG/ML VIAL IV ONE (17:45)
[2024-06-05 18:00] LABS: ALBUMIN 3.9 g/dL (3.4-5.0); ALBUMIN/GLOBULIN RATIO 1.18 (1.1-2.4); ANION GAP 14.8 (7-21); BILIRUBIN, TOTAL 0.3 mg/dL (0.2-1.0); BUN/CREATININE RATIO 15.66 (6.0-28.6); CALCIUM 8.5 mg/dL (8.5-10.1); CREATININE, SERUM 0.83 mg/dL (0.70-1.30); MAGNESIUM 1.9 mg/dL (1.8-2.4); POTASSIUM 3.8 mmol/L (3.5-5.1); PROTEIN, TOTAL 7.2 g/dL (6.4-8.2)
[2024-06-05 18:43] VITALS: BP 102/69
--- NOTE | 2024-06-06 22:01 | EKG ---
[facility] [address] [facility] [place] [address] Signed Sinus tachycardia Otherwise normal ECG When compared with ECG of 17-MAY-2024 15:19, No significant change was found Confirmed by Jesse Mattson MD () on 06/06/2024 10:01:40 PM Electronically Signed By: JESSE MATTSON MD 06/06/242200 PATIENT NAME: AUGUST DONOVAN Electrocardiogram DATE OF : 83 PHYSICIAN: JESSE MATTSON MD REPORT #: [id number] REPORT IS CONFIDENTIAL AND NOT TO BE RELEASED WITHOUT AUTHORIZATION
== END 2024-06-05 18:44 | disposition home or self-care (01) ==
LOC: ED 17:19
PROVIDERS: Emergency Medicine
DX: R07.9 Chest pain, unspecified (principal); Z88.8 Allergy status to other drugs, medicaments and biological substances; Z91.040 Latex allergy status; Z79.899 Other long term (current) drug therapy
CPT/HCPCS: 36415; 71045; 80053; 83735; 84484; 85025; 93005; 93010; 96374; 99285-25; J1885

== ENCOUNTER 2024-09-16 21:33 | Emergency (ER) | payer OTHER ==
[~2024-09-16] VITALS: Ht 152.4 cm; Wt 84.6 kg
[2024-09-16] MEDS ORDERED: IBLOOD GLUCOSE TEST STRIP 1 EA TEST XX ONE (21:45)
[2024-09-16 21:58] LABS: BASOPHILS 0.2 % (0.2-1.2); EOSINOPHILS 1.5 % (0.8-7.0); HEMATOCRIT 45.9 % (40.1-51.0); HEMOGLOBIN 14.7 g/dL (13.7-17.5); LYMPHOCYTES 21.9 % (21.8-53.1); MCH 27.2 PG (25.7-32.2); MONOCYTES 5.3 % (5.3-12.2); NEUTROPHILS 70.8 % (34.0-67.9); PLATELET COUNT 272 K/uL (163-337)
[2024-09-16 22:09] LABS: PARTIAL THROMBOPLASTIN TIME 23.1 Sec (22.9-41.3)
[2024-09-16 22:10] LABS: INR 1.05 (0.80-1.30); PROTIME 13.1 Sec (11.2-14.2)
[2024-09-16 22:16] LABS: ALBUMIN 4.5 g/dL (3.4-5.0); ALBUMIN/GLOBULIN RATIO 1.25 (1.1-2.4); ALKALINE PHOSPHATASE 129 U/L (46-116); ALT (SGPT) 37 U/L (14-59); ANION GAP 13.2 (7-21); AST (SGOT) 16 U/L (15-37); BILIRUBIN, TOTAL 0.4 mg/dL (0.2-1.0); BUN/CREATININE RATIO 6.16 (6.0-28.6); CARBON DIOXIDE 28 mmol/L (21-32); CHLORIDE 104 mmol/L (98-107); CREATININE, SERUM 1.46 mg/dL (0.70-1.30); GLOMERULAR FILTRATION RATE,EST 62 mL/min (>60); POTASSIUM 4.2 mmol/L (3.5-5.1); PROTEIN, TOTAL 8.1 g/dL (6.4-8.2); UREA NITROGEN 9 mg/dL (7-18)
[2024-09-17 00:51] LABS: AMPHETAMINES, URINE NEGATIVE (NEGATIVE); BENZODIAZEPINE, URINE NEGATIVE (NEGATIVE); BUPRENORPHINE, URINE NEGATIVE (NEGATIVE); CANNABINOID, URINE POSITIVE (NEGATIVE); COCAINE, URINE NEGATIVE (NEGATIVE); ECSTASY, URINE NEGATIVE (NEGATIVE); FENTANYL, URINE POSITIVE (NEGATIVE); METHADONE, URINE NEGATIVE (NEGATIVE); OPIATES, URINE NEGATIVE (NEGATIVE); OXYCODONE, URINE NEGATIVE (NEGATIVE); PHENCYCLIDINE, URINE NEGATIVE (NEGATIVE)
[2024-09-17] MEDS ORDERED: NALOXONE 4 MG NASAL SPRAY #2 HOME.PACK NAS ONE (01:15)
[2024-09-17 01:28] VITALS: BP 120/70
--- NOTE | 2024-09-17 21:57 | EKG ---
[facility] [address] [facility] [place] [address] Signed Sinus tachycardia Rightward axis Borderline ECG When compared with ECG of 05-JUN-2024 17:21, No significant change was found Confirmed by Jesse Mattson MD () on 09/17/2024 9:57:38 PM Electronically Signed By: JESSE MATTSON MD 09/17/247 PATIENT NAME: AUGUST DONOVAN Electrocardiogram DATE OF : 83 PHYSICIAN: JESSE MATTSON MD REPORT #: [id number] REPORT IS CONFIDENTIAL AND NOT TO BE RELEASED WITHOUT AUTHORIZATION
== END 2024-09-17 01:25 | disposition home or self-care (01) ==
LOC: ED 21:33
PROVIDERS: Family Medicine
DX: R06.02 Shortness of breath (principal); R20.2 Paresthesia of skin; G43.909 Migraine, unspecified, not intractable, without status migrainosus; I10 Essential (primary) hypertension; E78.00 Pure hypercholesterolemia, unspecified; Z79.899 Other long term (current) drug therapy; Z91.040 Latex allergy status; Z88.8 Allergy status to other drugs, medicaments and biological substances
CPT/HCPCS: 36415; 70450; 71045; 80053; 80307; 84484; 85025; 85610; 85730; 93005; 93010; 99285-25; J3490